=== PATIENT | female | born 1955 | race Caucasian/White ===

== ENCOUNTER → 2022-01-12 | Outpatient (CLI) | payer MEDICARE, OTHER ==
[2022-01-17 05:10] LABS: HSV-1 DNA Negative (Negative); HSV-2 DNA Negative (Negative)
== END | disposition home or self-care (01) ==
LOC: LAB SHORT 09:35
PROVIDERS: Physician Assistant Medical
DX: D48.5 Neoplasm of uncertain behavior of skin (principal); L81.3 Cafe au lait spots; L82.1 Other seborrheic keratosis; L85.3 Xerosis cutis; L57.8 Other skin changes due to chronic exposure to nonionizing radiation; R21 Rash and other nonspecific skin eruption
CPT/HCPCS: 87529; 87798

== ENCOUNTER → 2022-07-31 | Outpatient (CLI) | payer MEDICARE, OTHER ==
[2022-08-05 04:07] LABS: HSV-1 DNA Negative (Negative); HSV-2 DNA Negative (Negative)
== END | disposition home or self-care (01) ==
LOC: LAB SHORT 09:00
PROVIDERS: Physician Assistant Medical
DX: R21 Rash and other nonspecific skin eruption (principal); L57.8 Other skin changes due to chronic exposure to nonionizing radiation; L85.3 Xerosis cutis
CPT/HCPCS: 87529; 87798

== ENCOUNTER → 2023-08-20 | Outpatient (CLI) | payer MEDICARE ==
[2023-08-20 18:05] LABS: BASOPHILS ABSOLUTE AUTO 0.03 K/mm3 (0.00-0.23); BASOPHILS PERCENT AUTO 1 % (0-2); EOSINOPHILS ABSOLUTE AUTO 0.11 K/mm3 (0.00-0.68); EOSINOPHILS PERCENT AUTO 2 % (0-6); Hematocrit 40.9 % (33.0-51.0); Hemoglobin 13.1 g/dL (11.5-16.0); IMMATURE GRAN ABSOLUTE AUTO 0.01 K/mm3 (0.00-0.10); IMMATURE GRAN PERCENT AUTO 0 % (0-1); LYMPHOCYTES PERCENT AUTO 32 % (21-46); MONOCYTES ABSOLUTE AUTO 0.47 K/mm3 (0.16-1.47); MONOCYTES PERCENT AUTO 8 % (4-13); Mean Corpuscular HGB 27.3 pg (26.0-34.0); Mean Corpuscular Volume 85 fL (80-100); Mean Platelet Volume 10.7 fL (9.1-12.4); NEUTROPHILS ABSOLUTE AUTO 3.28 K/mm3 (1.96-9.15); NEUTROPHILS PERCENT AUTO 58 % (41-73); Platelet Count 293 K/mm3 (150-400); RDW Coefficient Variation 14.6 % (11.7-14.2); RDW Standard Deviation 45.6 fL (35.1-46.3)
[2023-08-20 19:30] LABS: Albumin, Blood 3.8 g/dL (3.4-5.0); Bilirubin, Total 0.4 mg/dL (0.1-1.0); Bun/Creatinine Ratio 23.3 (12.0-20.0); Calcium, Blood 9.4 mg/dL (8.5-10.1); Creatinine, Blood 0.73 mg/dL (0.40-1.00); Free Thyroxine 1.05 ng/dL (0.70-1.60); Globulin, Blood 3.7 g/dL (2.2-4.0); Potassium, Blood 3.9 mmol/L (3.5-5.5); Thyroid Stimulating Hormone 0.441 uIU/mL (0.360-4.800); Total Protein, Blood 7.5 g/dL (6.4-8.2)
== END | disposition home or self-care (01) ==
LOC: LAB SHORT 16:22 → LAB 16:22
PROVIDERS: Nurse Practitioner Family
DX: E02 Subclinical iodine-deficiency hypothyroidism (principal)
CPT/HCPCS: 80053; 84439; 84443; 85025

== ENCOUNTER → 2025-02-19 | Outpatient (CLI) | payer MEDICARE, OTHER ==
[2025-02-19 17:38] LABS: BASOPHILS ABSOLUTE AUTO 0.04 K/mm3 (0.00-0.23); BASOPHILS PERCENT AUTO 1 % (0-2); EOSINOPHILS ABSOLUTE AUTO 0.15 K/mm3 (0.00-0.68); EOSINOPHILS PERCENT AUTO 3 % (0-6); Hematocrit 39.4 % (33.0-51.0); Hemoglobin 12.7 g/dL (11.5-16.0); IMMATURE GRAN ABSOLUTE AUTO 0.01 K/mm3 (0.00-0.10); IMMATURE GRAN PERCENT AUTO 0 % (0-1); LYMPHOCYTES ABSOLUTE AUTO 2.43 K/mm3 (0.84-5.20); LYMPHOCYTES PERCENT AUTO 44 % (21-46); MONOCYTES ABSOLUTE AUTO 0.44 K/mm3 (0.16-1.47); MONOCYTES PERCENT AUTO 8 % (4-13); Mean Corpuscular HGB 27.8 pg (26.0-34.0); Mean Corpuscular HGB Conc 32.2 g/dL (31.5-36.5); Mean Corpuscular Volume 86 fL (80-100); Mean Platelet Volume 10.4 fL (9.1-12.4); NEUTROPHILS ABSOLUTE AUTO 2.52 K/mm3 (1.96-9.15); NEUTROPHILS PERCENT AUTO 45 % (41-73); Platelet Count 296 K/mm3 (150-400); RDW Coefficient Variation 14.2 % (11.7-14.2); RDW Standard Deviation 44.8 fL (35.1-46.3); Red Blood Cell Count 4.57 M/mm3 (3.80-5.20); White Blood Cell Count 5.59 K/mm3 (4.00-11.30)
[2025-02-19 21:09] LABS: Albumin, Blood 3.8 g/dL (3.4-5.0); Albumin/Globulin Ratio 1.1 (0.8-1.8); Bilirubin, Total 0.3 mg/dL (0.1-1.0); Bun/Creatinine Ratio 36.7 (12.0-20.0); Calcium, Blood 8.8 mg/dL (8.5-10.1); Creatinine, Blood 0.63 mg/dL (0.40-1.00); Free Thyroxine 1.16 ng/dL (0.70-1.60); Globulin, Blood 3.5 g/dL (2.2-4.0); Potassium, Blood 3.8 mmol/L (3.5-5.5); Thyroid Stimulating Hormone 1.76 uIU/mL (0.360-4.800); Total Protein, Blood 7.3 g/dL (6.4-8.2)
== END ==
LOC: LAB SHORT 15:52 → LAB 15:52
PROVIDERS: Nurse Practitioner Family
DX: E02 Subclinical iodine-deficiency hypothyroidism (principal); M25.571 Pain in right ankle and joints of right foot; G89.29 Other chronic pain; R60.0 Localized edema
CPT/HCPCS: 80053; 84439; 84443; 85025; 85651

== ENCOUNTER 2025-07-12 08:12 | Inpatient (IN) | payer MEDICARE, OTHER ==
[~2025-07-12] VITALS: Ht 160 cm; Wt 63.2 kg
[2025-07-12] VITALS (24 sets, daily range): BP systolic 90–147; BP diastolic 58–85
[2025-07-12] MEDS ORDERED: ADTHYZA PO (08:26)
[2025-07-12 08:38] LABS: BASOPHILS ABSOLUTE AUTO 0.04 K/mm3 (0.00-0.23); BASOPHILS PERCENT AUTO 0 % (0-2); EOSINOPHILS ABSOLUTE AUTO 0.07 K/mm3 (0.00-0.68); EOSINOPHILS PERCENT AUTO 1 % (0-6); Hematocrit 38.7 % (33.0-51.0); Hemoglobin 12.6 g/dL (11.5-16.0); IMMATURE GRAN ABSOLUTE AUTO 0.04 K/mm3 (0.00-0.10); IMMATURE GRAN PERCENT AUTO 0 % (0-1); LYMPHOCYTES ABSOLUTE AUTO 1.57 K/mm3 (0.84-5.20); LYMPHOCYTES PERCENT AUTO 15 % (21-46); MONOCYTES ABSOLUTE AUTO 0.48 K/mm3 (0.16-1.47); MONOCYTES PERCENT AUTO 5 % (4-13); Mean Corpuscular HGB Conc 32.6 g/dL (31.5-36.5); Mean Corpuscular Volume 85 fL (80-100); NEUTROPHILS ABSOLUTE AUTO 8.09 K/mm3 (1.96-9.15); NEUTROPHILS PERCENT AUTO 79 % (41-73); NRBC ABSOLUTE 0.00 K/mm3 (0.00-0.02); NRBC Auto 0.0 /100 WBC (0.0-0.2); Platelet Count 278 K/mm3 (150-400); RDW Coefficient Variation 14.7 % (11.7-14.2); RDW Standard Deviation 45.3 fL (35.1-46.3)
[2025-07-12] MEDS ORDERED: HYDROmorphone HCl/Pf 1MG SYR IV ONE ×2 (08:55→10:40)
[2025-07-12] MEDS ORDERED: Ondansetron HCl 2 MG / ML 2ML Vial IV ONE (08:55)
[2025-07-12 08:56] LABS: Alanine Aminotransfer (ALT/SGP 27.0 U/L (12-78); Albumin, Blood 3.4 g/dL (3.4-5.0); Albumin/Globulin Ratio 0.9 (0.8-1.8); Anion Gap 10.0 mmol/L (3-11); Aspartate Aminotrans (AST/SGOT 27.0 U/L (12-37); Bilirubin, Total 0.5 mg/dL (0.1-1.0); Blood Urea Nitrogen 17.0 mg/dL (8-24); CO2, Blood 23.0 mmol/L (21-32); Calcium, Blood 8.8 mg/dL (8.5-10.1); Chloride, Blood 110.0 mmol/L (98-108); Creatinine, Blood 0.56 mg/dL (0.40-1.00); Globulin, Blood 3.7 g/dL (2.2-4.0); Glucose, Blood 163.0 mg/dL (70-99); Potassium, Blood 3.7 mmol/L (3.5-5.5); Sodium, Blood 139.0 mmol/L (136-145); Total Protein, Blood 7.1 g/dL (6.4-8.2)
[2025-07-12 10:01] LABS: Source, Urine Clean Catch
[2025-07-12 10:05] LABS: Bilirubin, Urine Neg (Neg); Color, Urine Yellow (P-Yellow); Glucose Qualitative, Urine Neg (Neg); Ketones, Urine 2+ (Neg); Leukocyte Esterase, Urine Neg (Neg); Protein, Urine 1+ (Neg); Specific Gravity, Urine 1.010 (1.003-1.022); Urobilinogen, Urine NORM (Normal)
[2025-07-12] MEDS ORDERED: Piperacillin/Tazobactam Sod 3.375 GM in NS 100 ML IV ONE (10:10)
[2025-07-12 10:20] LABS: White Blood Cells, Urine 0-2 /hpf (0-5)
[2025-07-12] MEDS ORDERED: NS 1,000 ML IV SCH (10:20)
[2025-07-12] MEDS ORDERED: HYDROmorphone HCl/Pf 1MG SYR IV PRN ×2 (11:45→12:35)
[2025-07-12] MEDS ORDERED: Prochlorperazine Edisylate 10 mg Vial IV PRN (11:45)
[2025-07-12 12:23] LABS: Prothrombin Time Results 10.6 Sec (9.7-11.5)
[2025-07-12] MEDS ORDERED: Ropivacaine 0.5% HCL/PF 5 MG/ML 30ML Vial ONE (12:23)
[2025-07-12] MEDS ORDERED: SuccINYLCHOLINE Chloride 100 MG/5 ML 5MLSYR ONE (12:24)
[2025-07-12] MEDS ORDERED: Ondansetron HCl 2 MG / ML 2ML Vial ONE ×2 (12:24→13:46)
[2025-07-12] MEDS ORDERED: Dexamethasone Sod Phos 10 MG/ML 1ML VIAL ONE ×2 (12:24→13:46)
[2025-07-12] MEDS ORDERED: Rocuronium Bromide 10 MG/ML 5ML Injection IV ONE ×2 (12:24→13:57)
[2025-07-12] MEDS ORDERED: Midazolam HCl 1MG / ML 2ML Vial ONE (12:25)
[2025-07-12] MEDS ORDERED: FentaNYL Citrate 50 MCG/ML 2 ML Injection ONE ×3 (12:25→15:23)
[2025-07-12] MEDS ORDERED: FentaNYL Citrate 50 MCG/ML 2 ML Injection IV PRN ×2 (12:30→12:35)
[2025-07-12] MEDS ORDERED: Ondansetron HCl 2 MG / ML 2ML Vial IV PRN (12:35)
[2025-07-12] MEDS ORDERED: Albuterol 2.5 MG/3 ML VIAL INH PRN (12:35)
[2025-07-12] MEDS ORDERED: Sugammadex Sodium 200 MG/2ML SDV (100 MG/ML) ONE (13:54)
[2025-07-12] MEDS ORDERED: Phenylephrine HCl 100 MCG/ML-NS 10MLSYR (1MG/10ML) ONE (14:07)
--- NOTE | 2025-07-12 14:41 | NUR ---
07/12/25 1441 Divina Ballard PATIENT RECIEVED ANTIBIOTICS IN ER.
[2025-07-12] MEDS ORDERED: HYDROmorphone HCl/Pf 1MG SYR ONE ×2 (15:28→15:57)
[2025-07-12] MEDS ORDERED: Ketorolac Tromethamine 30mg Vial ONE (15:57)
[2025-07-12] MEDS ORDERED: Labetalol HCL 5 MG/ML 4ML Injection (Single Dose) ONE (16:14)
[2025-07-12] MEDS ORDERED: Naloxone HCl 0.4MG / ML 1ML Vial IV ONE (16:55)
--- NOTE | 2025-07-12 16:58 | NUR ---
pt to room 208. respirations 8/min. pt pale. Diaphoretic. bp stable. Dr cisneros consulted. Alfonso ordered and dr cisneros would like to transfer pt to PCU for vbg. julietaan in progress
--- NOTE | 2025-07-12 17:14 | NUR ---
pt transferred to PCU accompainied by PCU discharge specialist.
[2025-07-12 17:23] LABS: pH Blood Venous 7.18 (7.34-7.37)
[2025-07-12] MEDS ORDERED: NS 250 ML IV PRN (17:35)
[2025-07-12] MEDS ORDERED: Piperacillin/Tazobactam Sod 3.375 GM in NS 100 ML IV SCH (17:40)
[2025-07-13] VITALS (8 sets, daily range): BP systolic 91–117; BP diastolic 55–74
[2025-07-13 03:47] LABS: Hematocrit 35.6 % (33.0-51.0); Hemoglobin 11.2 g/dL (11.5-16.0); Mean Corpuscular HGB Conc 31.5 g/dL (31.5-36.5); Mean Corpuscular Volume 88 fL (80-100); NRBC ABSOLUTE 0.00 K/mm3 (0.00-0.02); NRBC Auto 0.0 /100 WBC (0.0-0.2); Platelet Count 253 K/mm3 (150-400); RDW Coefficient Variation 15.3 % (11.7-14.2); RDW Standard Deviation 48.7 fL (35.1-46.3)
[2025-07-13 04:10] LABS: Alanine Aminotransfer (ALT/SGP 20.0 U/L (12-78); Albumin, Blood 2.4 g/dL (3.4-5.0); Albumin/Globulin Ratio 0.8 (0.8-1.8); Anion Gap 8.0 mmol/L (3-11); Aspartate Aminotrans (AST/SGOT 24.0 U/L (12-37); Bilirubin, Total 0.6 mg/dL (0.1-1.0); Blood Urea Nitrogen 17.0 mg/dL (8-24); CO2, Blood 23.0 mmol/L (21-32); Calcium, Blood 7.9 mg/dL (8.5-10.1); Chloride, Blood 114.0 mmol/L (98-108); Creatinine, Blood 0.57 mg/dL (0.40-1.00); Globulin, Blood 3.0 g/dL (2.2-4.0); Glucose, Blood 123.0 mg/dL (70-99); Potassium, Blood 4.5 mmol/L (3.5-5.5); Sodium, Blood 140.0 mmol/L (136-145); Total Protein, Blood 5.4 g/dL (6.4-8.2)
[2025-07-13 04:11] LABS: BAND PERCENT MAN 34 % (0-8); BASOPHILS ABSOLUTE MAN 0.00 K/mm3 (0.00-0.23); BASOPHILS PERCENT MAN 0 % (0-2); EOSINOPHILS ABSOLUTE MAN 0.00 K/mm3 (0.00-0.68); EOSINOPHILS PERCENT MAN 0 % (0-6); LYMPHOCYTES ABSOLUTE MAN 0.30 K/mm3 (0.84-5.20); LYMPHOCYTES PERCENT MAN 6 % (21-46); METAMYELOCYTE ABSOLUTE MAN 0.10 K/mm3 (0.00-0.00); METAMYELOCYTE PERCENT MAN 2 % (0-0); MONOCYTES ABSOLUTE MAN 0.15 K/mm3 (0.16-1.47); MONOCYTES PERCENT MAN 3 % (4-13); NEUTROPHILS ABSOLUTE MAN 4.58 K/mm3 (1.96-9.15); SEG NEUTROPHILS PERCENT MAN 55 % (41-73)
--- NOTE | 2025-07-13 05:28 | NUR ---
NOC SHIFT SUMMARY PT ARRIVED TO PCU AT SHIFT CHANGE ON 07/12, BEDSIDE SHIFT REPORT GIVEN BY PEARL FISHERMAN GORGE. PT ARRIVED ON BIPAP BUT WAS UNABLE TO CELESTE IT AROUND 1999 D/T NAUSEA. PATIENT HAS HAD INTERMIT NAUSEA T/O THE NIGHT AND HAS BEEN MEDICATED WITH PRNs. NO EPISODES OF VOMITTING. IV ABX GIVEN PER EMAR AND IV FLUIDS INFUSING. BP HAS BEEN SOFT WITH MAP >65. DENIES CHEST PAIN OR PRESSURE. ABDOMEN PAIN 4-5/10 MEDICATED X1 PER EMAR. DEVI IN PLACE DRAINING TO GRAVITY, CATH CARE PROVIDED. DRESSING MIDLINE WITH SCANT AMOUNT OF DRAINAGE. PATIENT FAMILY PLANS TO RETURN THIS AM AND WOULD LIKE PHONE CALL WITH ANY UPDATES. BED IN LOW, CALL LIGHT IN REACH. CARE CONTINUES. CALL LIGHT IN REACH.
--- NOTE | 2025-07-13 10:50 | NUR ---
UPDATE PATIENT TOLERATING DILAUDID WELL AT LONGER INTERVALS. CONCERNED FOR HISTORY OF OVERSEDATION. THIS RN CONTACTED DR BRAY TO RECOMMEND POSSIBLE ADJUSTMENT TO PAIN MEDICATION ORDER. THIS RN RECOMMENDED FENTANYLMD PREFERRED DILAUDID AT LOWER DOSAGE. NEW ORDERS RECEIVED. SEE EMAR FOR DETAILS.
[2025-07-13] MEDS ORDERED: HYDROmorphone HCl/Pf 1MG SYR IV PRN (10:55)
[2025-07-13 11:00] LABS: pH Blood Venous 7.34 (7.34-7.37)
[2025-07-13] MEDS ORDERED: TPN Consult Notification XX ONE (13:05)
[2025-07-13] MEDS ORDERED: Parenteral Electolytes 40 ML,Potassium Phosphate Dibasic 30 MM,Multivitamins 10 ML,ZINC... IV SCH (17:00)
--- NOTE | 2025-07-13 18:42 | NUR ---
DAY SHIFT SUMMARY RAFFI IS ORIENTED X4, SOFT SPOKEN BUT ABLE TO MAKE NEEDS KNOWN. PLEASANT AND COOPERATIVE. PAIN 7-10/10 TO MID ABD - IV MEDS GIVEN ORDERED. TOLERATING WELL - HX OF OVERSEDATION AND LASTED 4+ HOURS WITH 1MG IV DILAUDID. NOTIFIED DR. BRAY AND ORDER CHANGED TO 0.5-1MG. SEE EMAR FOR DETAILS. MIDLINE ABD MARV WITH SMALL NICKEL SIZED CIRCLED SS DRAINAGE. L MID QUADRANT COLOSTOMY WITH BOWEL SWEAT, NO OUTPUT TODAY. HYPOACTIVE BOWEL SOUNDS. PPN STARTED PER EMAR, TOLERATED WELL. OCASSIONAL NAUSEA AND PAIN TREATED BY AVAILABLE PRNS WITH RELIEF. ABLE TO TOLERATE UP TO BSC FOR VOIDING, DEVI REMOVED AND ABLE TO VOID SMALL AMOUNT. CONTINUE BLADDER REMOVAL PROTOCOL. NO EDEMA, SCDS IN PLACE. IVF DCD PER DR. BRAY. PT EDUCATED ON PAIN, COLOSTOMY TEACHING STARTED - PT ABLE TO VISUALIZE COLOSTOMY BUT NOT INTERACTED AT THIS TIME. FAMILY AT BEDSIDE MOST OF THE DAY. BED LOCKED AND IN LOWEST POSITION
[2025-07-14] VITALS (17 sets, daily range): BP systolic 92–146; BP diastolic 48–80
--- NOTE | 2025-07-14 00:31 | NUR ---
PROVIDER COMMUNICATION: PROVIDER CONSULTED D/T PT HAVING 2 RUNS OF SVT 150S FOR ABOUT 6 SECONDS WHILE SLEEPING. BP 117/67, RR: 18, SPO2: 94%. PROVIDER ORDERED IONOIZED CALCIUM, MAG, AND PHOS LAB DRAW. PROVIDER INSTRUCTED TO CONSULT AGAIN IF SVT LAST MORE THAN 15 SECONDS AND IF LABS ARE ABNORMAL. WILL CONTINUE PLAN OF CARE.
[2025-07-14 01:20] LABS: Magnesium, Blood 2.2 mg/dL (1.6-2.4); Phosphorus, Blood 1.9 mg/dL (2.5-4.9)
[2025-07-14] MEDS ORDERED: Sodium Phosphate Mono/Dibasic 250 MG Tab PO ONE (01:35)
[2025-07-14] MEDS ORDERED: Potassium Phosphate Dibasic 10 MM in Dextrose 5% 250 ML IV ONE (01:55)
[2025-07-14] MEDS ORDERED: CALCIUM GLUC IN NACL, ISO-OSM 50 ML IV ONE (02:05)
[2025-07-14] MEDS ORDERED: Sodium Phosphate 10 MM in Dextrose 5% 250 ML IV ONE (02:20)
--- NOTE | 2025-07-14 03:43 | NUR ---
PROVIDER COMMUNICATION: PT CONTINUED TO HAVE TWO MORE RUNS OF SVT. ONE LASTING 18 SECONDS WITH A HR REACHING 150S-160S AND ONE LASTING 21 SECONDS WITH A HR REACHING 150S-180S. PHOS 1.9 AND IONIZED CALCIUM 1.07. PROVIDER CONSULTED AND ORDERED CALCIUM GLUCONATE AND SODIUM PHOSPHATE IV. MEDICATED PER ORDER.
[2025-07-14 06:03] LABS: Anion Gap 7 mmol/L (3-11); Blood Urea Nitrogen 20 mg/dL (8-24); CO2, Blood 24 mmol/L (21-32); Calcium, Blood 8.4 mg/dL (8.5-10.1); Chloride, Blood 110 mmol/L (98-108); Creatinine, Blood 0.46 mg/dL (0.40-1.00); Glucose, Blood 109 mg/dL (70-99); Magnesium, Blood 2.1 mg/dL (1.6-2.4); Phosphorus, Blood 1.8 mg/dL (2.5-4.9); Potassium, Blood 3.8 mmol/L (3.5-5.5); Sodium, Blood 137 mmol/L (136-145); Triglycerides 59 mg/dL (30-160)
[2025-07-14] MEDS ORDERED: Metoprolol Tartrate 1 MG/ML 5 ML VIAL IV ONE (06:05)
--- NOTE | 2025-07-14 06:53 | NUR ---
SHIFT SUMMARY: PT A&OX4 CALM AND COOPERATIVE. BP STABLE. MULTIPLE RUNS OF SVT REACHING 180S. PROVIDER CONSULTED. SEE PREVIOUS NOTES. CALCIUM AND PHOS REPLACED. PROVIDER ORDERED IV METOPROLOL. MEDICATED WITH 2.5MG D/T BP. SR-ST 90S-120S. MAINTAINING >92% ON 2L NC. PT C/O ABD, LEFT RIB, AND LEFT BACK PAIN. MEDICATED PER EMAR. OCCASIONAL NAUSEA. MEDICATED PER EMAR. RECEIVING PPN @135 ML/HR. SBA TO BSC. ADEQUATE URINE OUTPUT. SMALL BLOODY OUTPUT FROM COLOSTOMY. MIDLINE ABD DRESSING. BED IS LOW AND LOCKED AND CALL LIGHT WITHIN REACH.
[2025-07-14] MEDS ORDERED: TPN Consult Notification XX ONE (13:30)
[2025-07-14] MEDS ORDERED: NS 500 ML IV ONE (15:10)
[2025-07-14] MEDS ORDERED: Potassium Chl 20MEQ/Water100ML 100 ML IV STA (16:13)
[2025-07-14] MEDS ORDERED: NS 500 ML IV SCH (17:00)
[2025-07-14] MEDS ORDERED: Digoxin 0.25 MG in NS 4 ML IV SCH (17:00)
[2025-07-14] MEDS ORDERED: Parenteral Electolytes 40 ML,Potassium Phosphate Dibasic 30 MM,Multivitamins 10 ML,ZINC... IV SCH (17:00)
--- NOTE | 2025-07-14 18:33 | NUR ---
SHIFT ASSESSMENT PATIENT HAD EXPERIENCED MULTIPLE SHORT UNSTAINED RUNS OF SINUS TACH. NOTIFIED PROVIDER. PATIENT'S RHYTHM CHANGED TO AFIB. PROVIDER NOTIFIED. MEDICATED PER EMAR. PATIENT'S BLOOD PRESSURE REMAINED LOW WHILE HEART RATE WAS ELEVATED 140-170. PROVIDER NOTIFIED, NEW MEDICATION ORDER PLACED BY PROVIDER. PATIENT MEDICATED PER EMAR. PATIENT C/O OF "BLOATING", ORDER OBTAINED AND MEDICATED PER EMAR. DIGOXIN LOADED PER EMAR ORDERS, CURRENT HEART RATE 140-150. PATIENT ALERT AND ORIENTED X 4 AND CAN REPOSITION HER-SELF. PATIENT RESTING, BED IN LOWEST POSITION, CALL LIGHT WITH IN REACH. MID-ABDOMINAL DRESSING CLEAN DRY AND INTACT. MARV DRAIN RUNNING.
[2025-07-15] VITALS (11 sets, daily range): BP systolic 71–130; BP diastolic 44–91
[2025-07-15 04:32] LABS: Anion Gap 8 mmol/L (3-11); Blood Urea Nitrogen 12 mg/dL (8-24); CO2, Blood 23 mmol/L (21-32); Calcium, Blood 8.8 mg/dL (8.5-10.1); Chloride, Blood 108 mmol/L (98-108); Creatinine, Blood 0.43 mg/dL (0.40-1.00); Glucose, Blood 89 mg/dL (70-99); Magnesium, Blood 1.9 mg/dL (1.6-2.4); Phosphorus, Blood 1.3 mg/dL (2.5-4.9); Potassium, Blood 3.9 mmol/L (3.5-5.5); Sodium, Blood 135 mmol/L (136-145)
--- NOTE | 2025-07-15 06:49 | NUR ---
SHIFT SUMMARY: PT A&OX4 CALM AND COOPERATIVE. CONVERTED FROM AFIB TO NSR 70S-90S AT 2230. HAS MAINTAINED NSR 70S-90S. SOFT BPS. MAINTAINED >92% ON RA. DENIES PAIN. OSTOMY APPLIANCE CHANGED. CLEAR LIQUID DIET. WICKING SYSTEM IN PLACE. NO OTHER SIGNIFICANT EVENTS TO REPORT. BED IS LOW AND LOCKED. CALL LIGHT WITHIN REACH. CONTINUE WITH CURRENT PLAN OF CARE.
[2025-07-15] MEDS ORDERED: Potassium Phosphate Dibasic 20 MM in Dextrose 5% 500 ML IV STA (08:44)
--- NOTE | 2025-07-15 10:41 | NUR ---
assumption of care assumed care of patient at 0700. patient was awake, alert and oriented x 4 at bedside report. Patient's HR was 80-90 and regular sinus rhythm, blood pressure is 90/57. Patient denies chest pain and shortness of breath. Her ostomy is red, beefy and no abnormal bleeding present. patient now takes oral digoxin and was medicated per emar. She reports some nausea/indigestion, medicated per emar. Patient is resting comfortably, bed in lowest position, and call light is withing reach.
[2025-07-15] MEDS ORDERED: TPN Consult Notification XX ONE (11:45)
[2025-07-15] MEDS ORDERED: Parenteral Electolytes 40 ML,Potassium Phosphate Dibasic 30 MM,Multivitamins 10 ML,ZINC... IV SCH (17:00)
--- NOTE | 2025-07-15 18:25 | NUR ---
SHIFT SUMMARY PATIENT CONTINUES TO IMPROVE. HER HR HAS BEEN 80-90 AND SR ALL SHIFT WITH THE ORAL DIGOXIN NOTED IN ASSUMPTION OF CARE NOTE . HER MAP HAS BEEN GREATER THAN 72 ALL SHIFT. PATIENT'S DIET IS CLEAR LIQUIDS AND AND IS STILL INFUSING PPN AT 110ML/HR. PATIENT HAS HAD PT AND OT TODAY WHICH FATIGUED HER AT THE END OF DAY. PHYSICAL THERAPY HAS RECOMMENDED THAT SHE NOT GET OUT OF BED WITH OUT ASSISTANCE. PATIENT HAS HAD COMPLAINTS OF INDIGESTION AND WAS TREATED PER EMAR. PATIENT'S FAMILY WILL TRY TO FIND FOODS HIGH IN PROTEIN THAT FIT HER PRESCRIBED DIET AND HER FOOD ALLERGIES. PATIENT RESTING COMFORTABLY, BED IN LOWEST POSITION, CALL LIGHT WITH IN REACH.
[2025-07-16] VITALS (8 sets, daily range): BP systolic 118–131; BP diastolic 62–72
[2025-07-16 05:21] LABS: Anion Gap 11 mmol/L (3-11); Blood Urea Nitrogen 13 mg/dL (8-24); CO2, Blood 21 mmol/L (21-32); Calcium, Blood 8.2 mg/dL (8.5-10.1); Chloride, Blood 110 mmol/L (98-108); Creatinine, Blood 0.38 mg/dL (0.40-1.00); Glucose, Blood 94 mg/dL (70-99); Magnesium, Blood 2.0 mg/dL (1.6-2.4); Phosphorus, Blood 2.3 mg/dL (2.5-4.9); Potassium, Blood 3.6 mmol/L (3.5-5.5); Sodium, Blood 138 mmol/L (136-145)
--- NOTE | 2025-07-16 06:17 | NUR ---
SHIFT SUMMARY: PT A&OX4 CALM AND COOPERATIVE. VSS ON RA. DENIES PAIN. COLOSTOMY IN LUQ. STOMA IS PINK AND MOIST. NO OUTPUT. FREQUENT AND ADEQUATE URINE OUTPUT. PHOS INCREASED FROM 1.3 TO 2.1. PROVIDER NOTIFIED. PPN @110 ML/HR. SBA W/ FWW. WICKING SYSTEM IN PLACE. BED IS LOW AND LOCKED. CALL LIGHT WITHIN REACH. CONTINUE WITH CURRENT PLAN OF CARE.
[2025-07-16] MEDS ORDERED: Potassium Phosphate Dibasic 10 MM in Dextrose 5% 250 ML IV STA (06:35)
--- NOTE | 2025-07-16 12:50 | NUR ---
THIS NURSE CALLED DR. ELIAS ABOUT THE PT. ON THE PHONE THIS RN ASKED IF THE TEAM CAN START TO ADVANCE HER DIET TO TRY AND GET OFF OF THE PPN WITH DIETIONS CONSULTATIONED. DR. ELIAS AGREED TO ADVANCE TOLERATED. ALSO, WHILE ON THE PHONE, THIS RN LET THE PROVIDER KNOW ABOUT THE AIRLEAK ALARM ON THE MARV DRESSING. DR. ELIAS SAID TO MONITOR AT THIS TIME. THE MARV DRESSING STILL HAS A GOOD SEAL, AND THERE IS NO INCREASE IN OUTPUT NOTED ON THE DRESSING. ALSO, THE PT STARTED HAVING SMALL LOOSE BROWN OUTPUT FROM HER STOMA. STILL HAVE HYPOACTIVE BOWEL SOUNDS. NOTED FLATTUS IN OSTOMY BAG. THE PT IS STILL HAVING SOME GAS COMPLAINTS AND HAS BEEN MEDICATED PER EMAR. ALSO, SURGIAL CHARGE NURSE DID ASSESS THE PT'S OSTOMY AND MARV DRESSING AND DID NOT HAVE ANY CONCERNS. SEE NOTES FOR UPDATES.
--- NOTE | 2025-07-16 13:58 | NUR ---
THIS RN DISCUSSED ADVANCING PT'S DIET WITH JR BAILEY. LYNN RECCOMENDING INCREASEING FROM A CLEAR LIQUID DIET TOA FULL LIQUID DIET, AND CONTINUING PPN TODAY SINCE THE PT HAS POOR DIET INTAKE. THE PT CONTINUES TO C/O THE FOOD FORM [facility] WITH ALL OF OTHE SUGARS AND DYES. 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 THE PT'S GRANDDAUGHTER POLY WENT TO [facility] TO GET THE PT MORE FOOD SHE CAN TOLERATE. SEE NOTES FOR UPDATES .
--- NOTE | 2025-07-16 14:22 | NUR ---
MORNING SUMMARY PT IS A&O X4, ENGAGED WITH CARE, AND ABLE TO EXPRESS NEEDS. TELEMETRY MONITORING SHOWS JUNCTIONAL RHYTHM 70s-80s. WAVEFORM LOOKS NORMAL, BUT CA INTERVAL NARROWED TO 0.10, BPs ARE STABLE. PT SATTING OVER 93% ON RM AIR. PT POST OP DAY 4 POST LAPAROTOMY AND HEMICHOLECTOMY. STOMA IS PALE PINK AND MOIST, PRODUCING GAS AND SMALL AMOUNT OF BROWN LOOSE STOOL. MARV DRESSING IN PLACE WITH NO INCREASED EXUDATE AMOUNT. MARV MONITOR STATES AIR LEAK, DR. ELIAS AWARE- SEE NURSE NOTE. PT C/O PRESSURE IN ABD THIS AM FROM GAS BUILDUP, MEDICATED PER EMAR. PT HAS A PUREWICK IN PLACE FOR OVERACTIVE BLADDER, CHANGED THIS AFTERNOON. PT STATED THAT SHE RECIEVES [facility] OUTPATIENT FOR HER FREQUENCY AND URGENCY. PTs HAS BEEN AT BEDSIDE AND UPDATED ON CARE. PT ADVANCED FROM CLEAR LIQUID TO FULL LIQUID DIET BUT HAS YET TO ATTEMPT CONSUMING A FULL LIQUID MEAL YET D/T LACK OF OPTIONS IN HER DIETARY PREFERENCES. PPN INFUSING PER DIETITIAN. PT CURRENTLY IN BED WITH SIDE RAIL UP AND CALL LIGHT IN REACH. SEE NOTES FOR UPDATES.
--- NOTE | 2025-07-16 15:20 | NUR ---
ASSUMED CARE AT 1500, RECEIVED BEDSIDE REPORT FROM LASHA DUKE AND LASHA JOHANSEN.
--- NOTE | 2025-07-16 18:38 | NUR ---
THIS RN CALLED DR BRAY ABOUT ONGOING PAIN DESPITE BEING MEDICATED W/ TYLENOL. PO DILAUDID 0.5-1.O MG Q6 ORDERED. SEE NOTES FOR UPDATES
--- NOTE | 2025-07-16 23:19 | NUR ---
TRANSFER PT ARRIVED FROM PCU2 TO SURGICAL FLOOR 218 AT APPROX 2130 TODAY. BEDSIDE REPORT COMPLETED FROM Cailin RN PRIOR TO TRANSFER. PT A/OX4 WITH VSS. DENIES PAIN, SOB, CHEST PAIN OR N/T. OSTOMY APPLIANCE CDI, STOMA RED IN COLOR. MARV TO MIDLINE INTACT, OLD SHADOWING NOTED AND DRESSING COMPRESSED. CELESTE FULL LIQUID, DENIES N/V. HR SR AT 68BPM, PER KILN DOOR BUILDER. PUREWICK IN PLACE TO SUCTION. IV NUTRITION INFUSING PER ORDERS TO EX DWELL, DRESSING CDI. PT HAS CALL LIGHT IN REACH AND DENIES NEEDS.
--- NOTE | 2025-07-17 05:32 | NUR ---
SHIFT SUMMARY POD 5 S/P EXLAP WITH L HEMICOLECTOMY WITH DISTAL TRANSVERSE COLOSTOMY. OSTOMY PINK AND PATENT. MIDLINE SURGICAL SITE WITH MARV DRESSING C/D/I WITH OLD SHADOWING NOTED. PT C/O MILD PAIN, MEDICATED AND MANAGED PER EMAR. PT TOLERATING FULL LIQUID DIET AND INFUSING PPN 110ML/HR. FOOD AND BEVERAGE INTERN REPORTED 10 SECOND RUN OF BIGEMINY AT 2130. PT DENIED CHEST PAIN/PRESSURE, PALPITATAIONS, AND SOB. PT CURRENTLY SINUS RHYTHM HR 70 PER FOOD AND BEVERAGE INTERN. PUREWICK IN PLACE DUE UREGENCY AND FREQUENCEY WITH LIGHT YELLOW OUTPUT. PT UP IN RECLINER. CALL LIGHT WITHIN REACH. CARE PLAN ONGOING.
[2025-07-17 07:31] VITALS: BP 122/61
--- NOTE | 2025-07-17 15:16 | NUR ---
Spiritual Care Visit. Pt. is awake and welcomes my visit. Pt. is delightfully pleasant. Facilitated a life review and considered matters of zia and her family. Listen with interest and calming presence. Pt. displays a joyful countenance with evidence of her great spiritual hope. Prayed with the Pt. Pt. verbalized [facility].
[2025-07-17 15:44] VITALS: BP 118/60
--- NOTE | 2025-07-17 18:52 | NUR ---
SUMMARY: POD6 L COLECTOMY. A/O, VSS. SURGICAL SITE WNL, MARV NOT HOLDING SUCTION AND DR. ELIAS AWARE. OK TO LEAVE IN PLACE UNTIL NEED TO CHANGE OSTOMY APPLIANCE PER DR. ELIAS. PT UP SEVERAL TIMES TO RECLINER, GETS TIRED EASILY. PAIN APPEARS WELL MANAGED. TELE DC'D. TOLERATING SMALL AMTS OF REG DIET, NO N/V. NO ACUTE CONCERNS.
[2025-07-17 19:17] VITALS: BP 125/64
[2025-07-18 03:14] VITALS: BP 111/60
--- NOTE | 2025-07-18 06:02 | NUR ---
SHIFT SUMMARY NO ACUTE CHANGES TO REPORT OVERNIGHT. PT HAS RESTED MOST OF THE NIGHT. SOME ABD PAIN THIS SHIFT, WELL GAS PAIN. MEDICATED PER EMAR. PT AMBULATED TO THE BSC THIS SHIFT. USING INCENTIVE SPIROMETER. IV ANTIBIOTICS INFUSED. VITALS STABLE. PLAN OF CARE REMAINS UNCHANGED. BED IN LOWEST POSITION, CALL LIGHT WITHIN REACH.
[2025-07-18 07:15] VITALS: BP 129/70
[2025-07-18 14:49] VITALS: BP 120/59
--- NOTE | 2025-07-18 17:11 | NUR ---
SUMMARY NO ACUTE CHANGES T/O SHIFT. PT SAT UP IN RECLINER THIS AM. WAS TIRED T/O AFTERNOON, SLEEPING OFF AND ON. MEDICATED PT PER ORDERS FOR PAIN DURING SHIFT. PT'S OSTOMY PRODUCING FLATUS AND SOFT UNFORMED STOOL. DISCUSSED WITH PT HOW TO BURP APPLIANCE AND EMPTY. PT ATTENTIVE TO INSTRUCTION. CALL LIGHT IN REACH.
[2025-07-18 19:42] VITALS: BP 122/61
[2025-07-19 03:53] VITALS: BP 113/54
[2025-07-19 05:50] LABS: Hematocrit 26.2 % (33.0-51.0); Hemoglobin 8.8 g/dL (11.5-16.0); Mean Corpuscular HGB Conc 33.6 g/dL (31.5-36.5); Mean Corpuscular Volume 82 fL (80-100); NRBC ABSOLUTE 0.02 K/mm3 (0.00-0.02); NRBC Auto 0.1 /100 WBC (0.0-0.2); Platelet Count 395 K/mm3 (150-400); RDW Coefficient Variation 14.3 % (11.7-14.2); RDW Standard Deviation 42.3 fL (35.1-46.3)
--- NOTE | 2025-07-19 06:02 | NUR ---
SHIFT SUMMARY NO ACUTE CHANGES TO REPORT OVERNIGHT, PAIN MANAGED PER EMAR. PT HAS BEEN UP AND AMBULATING, AND TOLERATING. VOIDING. OSTOMY PUTTING OUT BROWN LIQUID STOOL. VITALS STABLE. PLAN OF CARE REMAINS UNCHANGED. BED IN LOWEST POSITION, CALL LIGHT WITHIN REACH.
[2025-07-19 06:27] LABS: Anion Gap 9.0 mmol/L (3-11); Blood Urea Nitrogen 11.0 mg/dL (8-24); CO2, Blood 23.0 mmol/L (21-32); Calcium, Blood 8.5 mg/dL (8.5-10.1); Chloride, Blood 108.0 mmol/L (98-108); Creatinine, Blood 0.42 mg/dL (0.40-1.00); Glucose, Blood 93.0 mg/dL (70-99); Potassium, Blood 3.9 mmol/L (3.5-5.5); Sodium, Blood 136.0 mmol/L (136-145)
[2025-07-19 07:02] VITALS: BP 103/58
[2025-07-19 09:32] LABS: Ferritin, Serum 181.0 ng/mL (8-252); Total Iron Binding Capacity 194.0 ug/dL (250-450)
--- NOTE | 2025-07-19 11:35 | NUR ---
THERAPY IN WITH PT.
--- NOTE | 2025-07-19 11:51 | NUR ---
PT TO IMAGING.
--- NOTE | 2025-07-19 12:09 | NUR ---
PT BACK TO FROM CT. SITTING UP IN RECLINER.
[2025-07-19] MEDS ORDERED: Potassium Phosphate Dibasic 20 MM in Dextrose 5% 500 ML IV STA (12:44)
[2025-07-19] MEDS ORDERED: Iron Dextran 50 MG / ML 2ML Vial IV ONE (12:45)
--- NOTE | 2025-07-19 13:12 | NUR ---
resting in bed, call light in reach.
[2025-07-19] MEDS ORDERED: Iron Dextran 975 MG in NS 250 ML IV ONE (14:00)
[2025-07-19 14:51] VITALS: BP 102/57
--- NOTE | 2025-07-19 18:45 | NUR ---
SUMMARY NO ACUTE CHANGES T/O SHIFT. PT WORKED WITH THERAPY, HAD CT, SAT UP IN CHAIR OFF AND ON T/O DAY. REC'D INFED THIS AFTERNOON, TOLERATED WELL. MEDICATED PT PER ORDERS DURING SHIFT FOR PAIN. USES PUREWICK FOR URINARY URGENCY. CALL LIGHT IN REACH. PT PLEASANT AND COOPERATIVE.
[2025-07-19 20:16] VITALS: BP 101/59
--- NOTE | 2025-07-20 04:30 | NUR ---
PT WITH SMALL AMNT LIQ STOOL IN OSTOMY BAG.DENIES NAUSEA,REPORTS GAS PAINS WHICH SHE TAKES MAALOX AND MYLICON FOR AND FEELS THEY ARE EFFECTIVE.
[2025-07-20 04:35] VITALS: BP 122/53
[2025-07-20 07:15] LABS: Hematocrit 29.3 % (33.0-51.0); Hemoglobin 9.7 g/dL (11.5-16.0); Mean Corpuscular HGB Conc 33.1 g/dL (31.5-36.5); Mean Corpuscular Volume 83 fL (80-100); NRBC ABSOLUTE 0.00 K/mm3 (0.00-0.02); NRBC Auto 0.0 /100 WBC (0.0-0.2); Platelet Count 527 K/mm3 (150-400); RDW Coefficient Variation 14.6 % (11.7-14.2); RDW Standard Deviation 43.5 fL (35.1-46.3)
[2025-07-20 07:32] VITALS: BP 95/67
[2025-07-20 07:37] LABS: Anion Gap 11.0 mmol/L (3-11); Blood Urea Nitrogen 7.0 mg/dL (8-24); CO2, Blood 22.0 mmol/L (21-32); Calcium, Blood 8.6 mg/dL (8.5-10.1); Chloride, Blood 106.0 mmol/L (98-108); Creatinine, Blood 0.39 mg/dL (0.40-1.00); Glucose, Blood 98.0 mg/dL (70-99); Potassium, Blood 3.9 mmol/L (3.5-5.5); Sodium, Blood 135.0 mmol/L (136-145)
[2025-07-20 08:11] LABS: BAND PERCENT MAN 5 % (0-8); BASOPHILS ABSOLUTE MAN 0.00 K/mm3 (0.00-0.23); BASOPHILS PERCENT MAN 0 % (0-2); EOSINOPHILS ABSOLUTE MAN 0.14 K/mm3 (0.00-0.68); EOSINOPHILS PERCENT MAN 1 % (0-6); LYMPHOCYTES ABSOLUTE MAN 1.15 K/mm3 (0.84-5.20); LYMPHOCYTES PERCENT MAN 8 % (21-46); METAMYELOCYTE ABSOLUTE MAN 0.28 K/mm3 (0.00-0.00); METAMYELOCYTE PERCENT MAN 2 % (0-0); MONOCYTES ABSOLUTE MAN 0.72 K/mm3 (0.16-1.47); MONOCYTES PERCENT MAN 5 % (4-13); NEUTROPHILS ABSOLUTE MAN 12.01 K/mm3 (1.96-9.15); PLASMA CELL ABSOLUTE MAN 0.14 K/mm3 (0.00-0.00); PLASMA CELLS PERCENT MAN 1 % (0-0); SEG NEUTROPHILS PERCENT MAN 78 % (41-73)
--- NOTE | 2025-07-20 08:29 | NUR ---
SUMMARY PT HOPING FOR DISCHARGE TODAY.
[2025-07-20 10:03] VITALS: BP 108/67
[2025-07-20] MEDS ORDERED: DIGOX250 MCG PO (11:32)
[2025-07-20] MEDS ORDERED: ALUM-MAG HYDROX30 M2 PO (11:32)
[2025-07-20] MEDS ORDERED: SIME80CH PO (11:33)
--- NOTE | 2025-07-20 13:30 | NUR ---
DISCHARGE NOTE S/P EXP LAP W/ COLECTOMY 07/12. PATIENT ALERT AND ORIENTED X4. COMMUNICATING NEEDS EFFECTIVELY. SBP 90s-100s, MAP >65. ASYMPTOMATIC W/ POSITION CHANGES. DENIES CHEST PAIN, PRESSURE. BASELINE PER PATIENT. HR 90s-110s. PO DIGOXIN ADMINISTERED PER EMAR. ON ROOM AIR - SATs >90%. CHEST XRAY OBTAINED THIS MORNING. PATIENT USING INCENTIVE SPIROMETER INSTRUCTED - DEVICE PROVIDED FOR USE AT HOME. OSTOMY LLQ W/ MODERATE LOOSE BROWN STOOL. OSTOMY BEEFY, PINK. DEVICE CHANGED W/ GIANNA RN - PATIENT AND FAMILY RECEPTIVE TO EDUCATION, ASKING FREQUENT QUESTIONS TO GAIN FURTHER UNDERSTANDING OF DEVICE MANAGEMENT. TOLERATING REGULAR DIET. MIDLINE INCISION W/ MARV DRESSING - MARV REMOVED PER MD ERNST. DEREK TO BE REMOVED OUTPATIENT. WRITTEN AND VERBAL EDUCATION PROVIDED - PATIENT STATES UNDERSTANDING. IV REMOVED. PERSONAL BELONGINGS W/ PATIENT. PATIENT TRANSFERRED TO PERSONAL VEHICLE VIA .
== END 2025-07-20 13:33 | disposition home health service (06) | DRG 329 ==
LOC: ER 08:12 → SURS 11:42 → ERHOLD 11:42 → PCU 12:49 → SURS 15:29 → ICUE 17:24 → PCU 18:57 → SURS 07-16 21:21
PROVIDERS: Emergency Medicine; Student in an Organized Health Care Education/Training Program; Surgery; ADMIT Internal Medicine
PROC: 0DTG0ZZ Resection of Left Large Intestine, Open Approach (ICD-10-PCS; 2025-07-12)
PROC: 0D1L0Z4 Bypass Transverse Colon to Cutaneous, Open Approach (ICD-10-PCS; principal; 2025-07-12 12:45)
PROC: 3E0336Z Introduction of Nutritional Substance into Peripheral Vein, Percutaneous Approach (ICD-10-PCS; 2025-07-13)
PROC: 5A09357 Assistance with Respiratory Ventilation, Less than 24 Consecutive Hours, Continuous Positive Airway Pressure (ICD-10-PCS; 2025-07-13)
DX: K57.20 Diverticulitis of large intestine with perforation and abscess without bleeding (principal); J96.01 Acute respiratory failure with hypoxia; K65.0 Generalized (acute) peritonitis; J96.02 Acute respiratory failure with hypercapnia; J90 Pleural effusion, not elsewhere classified; Z66 Do not resuscitate; E03.9 Hypothyroidism, unspecified; M19.90 Unspecified osteoarthritis, unspecified site; D64.9 Anemia, unspecified; E83.39 Other disorders of phosphorus metabolism; E87.6 Hypokalemia; K52.9 Noninfective gastroenteritis and colitis, unspecified; T40.2X5A Adverse effect of other opioids, initial encounter; Z98.890 Other specified postprocedural states; K66.8 Other specified disorders of peritoneum; I48.0 Paroxysmal atrial fibrillation; I49.1 Atrial premature depolarization
CPT/HCPCS: 36415; 71045; 74177; 80048; 80053; 80162; 81001; 82330; 82728; 82803; 82947; 83540; 83550; 83690; 83735; 84100; 84145; 84478; 85025; 85027; 85610; 85730; 88307; 93005; 93010; 93306; 94660; 94762; 96365-59; 96375; 96376; 97110; 97116; 97161; 97165; 97530; 97535; 99285-25; A9270; J0330; J0612; J0780; J1100; J1160; J1171; J1750; J1885; J2250; J2312; J2371; J2405; J2543; J2704; J2795; J3010; J3411; J3480; J7030; J7040; J7050; J7060; J7070; J7120; Q9967

== ENCOUNTER → 2025-07-24 | Outpatient (CLI) | payer MEDICARE, OTHER ==
[~2025-07-24] MED LIST: ADTHYZA PO; ALUM-MAG HYDROX30 M2 PO; DIGOX250 MCG PO; SIME80CH PO
[2025-07-24 14:21] LABS: BASOPHILS ABSOLUTE AUTO 0.03 K/mm3 (0.00-0.23); BASOPHILS PERCENT AUTO 0 % (0-2); EOSINOPHILS ABSOLUTE AUTO 0.05 K/mm3 (0.00-0.68); EOSINOPHILS PERCENT AUTO 1 % (0-6); Hematocrit 27.8 % (33.0-51.0); Hemoglobin 8.9 g/dL (11.5-16.0); IMMATURE GRAN ABSOLUTE AUTO 0.22 K/mm3 (0.00-0.10); IMMATURE GRAN PERCENT AUTO 2 % (0-1); LYMPHOCYTES ABSOLUTE AUTO 1.12 K/mm3 (0.84-5.20); LYMPHOCYTES PERCENT AUTO 12 % (21-46); MONOCYTES ABSOLUTE AUTO 0.92 K/mm3 (0.16-1.47); MONOCYTES PERCENT AUTO 10 % (4-13); Mean Corpuscular HGB Conc 32.0 g/dL (31.5-36.5); Mean Corpuscular Volume 86 fL (80-100); NEUTROPHILS ABSOLUTE AUTO 7.16 K/mm3 (1.96-9.15); NEUTROPHILS PERCENT AUTO 75 % (41-73); NRBC ABSOLUTE 0.00 K/mm3 (0.00-0.02); NRBC Auto 0.0 /100 WBC (0.0-0.2); Platelet Count 807 K/mm3 (150-400); RDW Coefficient Variation 15.3 % (11.7-14.2); RDW Standard Deviation 46.4 fL (35.1-46.3)
== END ==
LOC: LAB 14:14 → LAB SHORT 14:14
PROVIDERS: Nurse Practitioner Family
DX: D72.829 Elevated white blood cell count, unspecified (principal)
CPT/HCPCS: 85025

== ENCOUNTER → 2025-08-11 | Outpatient (CLI) | payer MEDICARE, OTHER ==
[2025-08-11 18:20] LABS: BASOPHILS ABSOLUTE AUTO 0.04 K/mm3 (0.00-0.23); BASOPHILS PERCENT AUTO 1 % (0-2); EOSINOPHILS ABSOLUTE AUTO 0.21 K/mm3 (0.00-0.68); EOSINOPHILS PERCENT AUTO 3 % (0-6); Hematocrit 31.4 % (33.0-51.0); Hemoglobin 9.6 g/dL (11.5-16.0); IMMATURE GRAN ABSOLUTE AUTO 0.06 K/mm3 (0.00-0.10); IMMATURE GRAN PERCENT AUTO 1 % (0-1); LYMPHOCYTES ABSOLUTE AUTO 2.02 K/mm3 (0.84-5.20); LYMPHOCYTES PERCENT AUTO 25 % (21-46); MONOCYTES ABSOLUTE AUTO 0.77 K/mm3 (0.16-1.47); MONOCYTES PERCENT AUTO 10 % (4-13); Mean Corpuscular HGB Conc 30.6 g/dL (31.5-36.5); Mean Corpuscular Volume 85 fL (80-100); NEUTROPHILS ABSOLUTE AUTO 5.03 K/mm3 (1.96-9.15); NEUTROPHILS PERCENT AUTO 62 % (41-73); NRBC ABSOLUTE 0.00 K/mm3 (0.00-0.02); NRBC Auto 0.0 /100 WBC (0.0-0.2); Platelet Count 726 K/mm3 (150-400); RDW Coefficient Variation 15.0 % (11.7-14.2); RDW Standard Deviation 45.8 fL (35.1-46.3)
== END ==
LOC: LAB SHORT 11:05 → LAB 11:05
PROVIDERS: Nurse Practitioner Family
DX: D64.9 Anemia, unspecified (principal)
CPT/HCPCS: 85025

== ENCOUNTER → 2025-09-08 | Outpatient (CLI) | payer MEDICARE, OTHER ==
[~2025-09-08] MED LIST changes: +DOCU100 PO; +Estrace Vagin42.5 GM VAG; +PROG100 PO; +Percocet 5-3251 EACH PO
[2025-09-08 17:48] LABS: BASOPHILS ABSOLUTE AUTO 0.05 K/mm3 (0.00-0.23); BASOPHILS PERCENT AUTO 1 % (0-2); EOSINOPHILS ABSOLUTE AUTO 0.16 K/mm3 (0.00-0.68); EOSINOPHILS PERCENT AUTO 2 % (0-6); Hematocrit 30.4 % (33.0-51.0); Hemoglobin 9.3 g/dL (11.5-16.0); IMMATURE GRAN ABSOLUTE AUTO 0.03 K/mm3 (0.00-0.10); IMMATURE GRAN PERCENT AUTO 0 % (0-1); LYMPHOCYTES ABSOLUTE AUTO 1.88 K/mm3 (0.84-5.20); LYMPHOCYTES PERCENT AUTO 24 % (21-46); MONOCYTES ABSOLUTE AUTO 0.74 K/mm3 (0.16-1.47); MONOCYTES PERCENT AUTO 9 % (4-13); Mean Corpuscular HGB Conc 30.6 g/dL (31.5-36.5); Mean Corpuscular Volume 82 fL (80-100); NEUTROPHILS ABSOLUTE AUTO 5.11 K/mm3 (1.96-9.15); NEUTROPHILS PERCENT AUTO 64 % (41-73); NRBC ABSOLUTE 0.00 K/mm3 (0.00-0.02); NRBC Auto 0.0 /100 WBC (0.0-0.2); Platelet Count 489 K/mm3 (150-400); RDW Coefficient Variation 15.5 % (11.7-14.2); RDW Standard Deviation 45.8 fL (35.1-46.3)
== END | disposition home or self-care (01) ==
LOC: LAB SHORT 11:12 → LAB 11:12
PROVIDERS: Nurse Practitioner Family
DX: D64.9 Anemia, unspecified (principal)
CPT/HCPCS: 85025

== ENCOUNTER 2025-09-13 12:39 | Emergency (ER) | payer MEDICARE, OTHER ==
[~2025-09-13] VITALS: Ht 160 cm; Wt 49.9 kg
[~2025-09-13 12:39] MED LIST changes: -DOCU100 PO; -Estrace Vagin42.5 GM VAG; -PROG100 PO; -Percocet 5-3251 EACH PO
[2025-09-13] MEDS ORDERED: PROG100 PO (13:01)
[2025-09-13] MEDS ORDERED: Estrace Vagin42.5 GM (13:02)
[2025-09-13 13:16] LABS: BASOPHILS ABSOLUTE AUTO 0.04 K/mm3 (0.00-0.23); BASOPHILS PERCENT AUTO 1 % (0-2); EOSINOPHILS ABSOLUTE AUTO 0.08 K/mm3 (0.00-0.68); EOSINOPHILS PERCENT AUTO 1 % (0-6); Hematocrit 31.4 % (33.0-51.0); Hemoglobin 9.7 g/dL (11.5-16.0); IMMATURE GRAN ABSOLUTE AUTO 0.03 K/mm3 (0.00-0.10); IMMATURE GRAN PERCENT AUTO 0 % (0-1); LYMPHOCYTES ABSOLUTE AUTO 1.68 K/mm3 (0.84-5.20); LYMPHOCYTES PERCENT AUTO 23 % (21-46); MONOCYTES ABSOLUTE AUTO 0.40 K/mm3 (0.16-1.47); MONOCYTES PERCENT AUTO 6 % (4-13); Mean Corpuscular HGB Conc 30.9 g/dL (31.5-36.5); Mean Corpuscular Volume 82 fL (80-100); NEUTROPHILS ABSOLUTE AUTO 4.97 K/mm3 (1.96-9.15); NEUTROPHILS PERCENT AUTO 69 % (41-73); NRBC ABSOLUTE 0.00 K/mm3 (0.00-0.02); NRBC Auto 0.0 /100 WBC (0.0-0.2); Platelet Count 592 K/mm3 (150-400); RDW Coefficient Variation 15.7 % (11.7-14.2); RDW Standard Deviation 45.7 fL (35.1-46.3)
[2025-09-13 13:29] LABS: Alanine Aminotransfer (ALT/SGP 15.0 U/L (12-78); Albumin, Blood 3.2 g/dL (3.4-5.0); Albumin/Globulin Ratio 0.7 (0.8-1.8); Anion Gap 11.0 mmol/L (3-11); Aspartate Aminotrans (AST/SGOT 19.0 U/L (12-37); Bilirubin, Total 0.2 mg/dL (0.1-1.0); Blood Urea Nitrogen 13.0 mg/dL (8-24); CO2, Blood 22.0 mmol/L (21-32); Calcium, Blood 8.9 mg/dL (8.5-10.1); Chloride, Blood 106.0 mmol/L (98-108); Creatinine, Blood 0.52 mg/dL (0.40-1.00); Globulin, Blood 4.3 g/dL (2.2-4.0); Glucose, Blood 104.0 mg/dL (70-99); Potassium, Blood 3.6 mmol/L (3.5-5.5); Sodium, Blood 135.0 mmol/L (136-145); Total Protein, Blood 7.5 g/dL (6.4-8.2)
[2025-09-13] MEDS ORDERED: FentaNYL Citrate 50 MCG/ML 2 ML Injection IV ONE (14:15)
[2025-09-13] MEDS ORDERED: Percocet 5-3251 EACH PO (14:17)
[2025-09-13] MEDS ORDERED: DOCU100 PO (14:17)
[2025-09-13] MEDS ORDERED: Ondansetron HCl 2 MG / ML 2ML Vial IV ONE (14:20)
[2025-09-13 15:35] VITALS: BP 114/56
== END 2025-09-13 15:46 | disposition home or self-care (01) ==
LOC: ER 12:39
PROVIDERS: Emergency Medicine
DX: K59.00 Constipation, unspecified (principal); E03.9 Hypothyroidism, unspecified; Z93.3 Colostomy status; Z91.0110 Allergy to milk products, unspecified; Z91.014 Allergy to mammalian meats; Z91.018 Allergy to other foods; Z91.0120 Allergy to eggs, unspecified; Z91.02 Food additives allergy status; Z79.890 Hormone replacement therapy; Z79.899 Other long term (current) drug therapy
CPT/HCPCS: 74177; 80053; 83690; 85025; 93005; 93010; A9270; J2405; J3010; Q9967

== ENCOUNTER 2025-09-15 13:26 | Inpatient (IN) | payer MEDICARE, OTHER ==
[~2025-09-15] VITALS: Ht 160 cm; Wt 51.3 kg
[~2025-09-15 13:26] MED LIST changes: +DOCU100 PO; +Estrace Vagin42.5 GM VAG; +PROG100 PO; +Percocet 5-3251 EACH PO
[2025-09-15] MEDS ORDERED: Ondansetron HCl 2 MG / ML 2ML Vial IV ONE (14:55)
[2025-09-15 15:22] LABS: BASOPHILS ABSOLUTE AUTO 0.02 K/mm3 (0.00-0.23); BASOPHILS PERCENT AUTO 0 % (0-2); EOSINOPHILS ABSOLUTE AUTO 0.03 K/mm3 (0.00-0.68); EOSINOPHILS PERCENT AUTO 0 % (0-6); Hematocrit 38.1 % (33.0-51.0); Hemoglobin 11.4 g/dL (11.5-16.0); IMMATURE GRAN ABSOLUTE AUTO 0.06 K/mm3 (0.00-0.10); IMMATURE GRAN PERCENT AUTO 1 % (0-1); LYMPHOCYTES ABSOLUTE AUTO 1.52 K/mm3 (0.84-5.20); LYMPHOCYTES PERCENT AUTO 13 % (21-46); MONOCYTES ABSOLUTE AUTO 0.74 K/mm3 (0.16-1.47); MONOCYTES PERCENT AUTO 6 % (4-13); Mean Corpuscular HGB Conc 29.9 g/dL (31.5-36.5); Mean Corpuscular Volume 81 fL (80-100); NEUTROPHILS ABSOLUTE AUTO 9.72 K/mm3 (1.96-9.15); NEUTROPHILS PERCENT AUTO 80 % (41-73); NRBC ABSOLUTE 0.00 K/mm3 (0.00-0.02); NRBC Auto 0.0 /100 WBC (0.0-0.2); Platelet Count 628 K/mm3 (150-400); RDW Coefficient Variation 15.9 % (11.7-14.2); RDW Standard Deviation 46.4 fL (35.1-46.3)
[2025-09-15 15:44] LABS: Alanine Aminotransfer (ALT/SGP 19.0 U/L (12-78); Albumin, Blood 3.6 g/dL (3.4-5.0); Albumin/Globulin Ratio 0.8 (0.8-1.8); Anion Gap 11.0 mmol/L (3-11); Aspartate Aminotrans (AST/SGOT 20.0 U/L (12-37); Bilirubin, Total 0.4 mg/dL (0.1-1.0); Blood Urea Nitrogen 10.0 mg/dL (8-24); CO2, Blood 24.0 mmol/L (21-32); Calcium, Blood 10.1 mg/dL (8.5-10.1); Chloride, Blood 100.0 mmol/L (98-108); Creatinine, Blood 0.52 mg/dL (0.40-1.00); Globulin, Blood 4.8 g/dL (2.2-4.0); Glucose, Blood 107.0 mg/dL (70-99); Potassium, Blood 4.1 mmol/L (3.5-5.5); Sodium, Blood 131.0 mmol/L (136-145); Total Protein, Blood 8.4 g/dL (6.4-8.2)
[2025-09-15] MEDS ORDERED: NS 1,000 ML IV SCH ×2 (16:45→18:35)
[2025-09-15] MEDS ORDERED: FentaNYL Citrate 50 MCG/ML 2 ML Injection IV ONE (16:45)
[2025-09-15] MEDS ORDERED: Metoclopramide HCl 5MG / ML 2ML Vial IV ONE (16:45)
[2025-09-15] MEDS ORDERED: FLU VACC TS2025(65UP)/MF59C/PF 45 MCG/0.5 ML SYRINGE IM SCH (18:35)
[2025-09-15] MEDS ORDERED: Ondansetron HCl 2 MG / ML 2ML Vial IV PRN (18:35)
[2025-09-15] MEDS ORDERED: FentaNYL Citrate 50 MCG/ML 2 ML Injection IV PRN ×2 (18:40→20:30)
[2025-09-15 21:53] VITALS: BP 115/68
--- NOTE | 2025-09-15 22:32 | NUR ---
ADMIT NOTE 70 YR OLD FEMALE ADMITTED TO FLOOR FROM THE ED WITH DX OF SMALL BOWEL OBSTRUCTION. VSS. HX RECENT STOMA PLACEMENT OF RIGHT LOWER ABD DUE TO RUPTURE OF INTESTINE. A/O X 4. HYPOACTIVE BOWEL SOUNDS. IVF OF NS INFUSING. NPO WITH CONT LOW SUCTION WITH NG TUBE. ORIENTED TO USE OF CALL LIGHT AND BED CONTROL. AGREES TO USE CALL LIGHT PRIOR TO GETTING OOB. WILL CONT TO MONITOR.
--- NOTE | 2025-09-15 23:16 | NUR ---
SUCTION CHANGED TO LOW INTERMITTENT, PT VOICED FEELING OK AT THIS TIME.
[2025-09-16 00:28] VITALS: BP 114/67
--- NOTE | 2025-09-16 01:08 | NUR ---
PRODUCTION ANALYST SURGERY CONSULT CALL PLACED TO PRODUCTION ANALYST ANSWERING SERVICE RE PT SBO. MAISHA REPORTED SHE WOULD NOTIFY DR RAGLAND IN THE AM.
--- NOTE | 2025-09-16 04:16 | NUR ---
SAFEMAKER SUMMARY ADMITTED TO FLOOR EARLIER IN THE SHIFT WITH DX OF SBO. NPO. RECENT HX OF COLOSTOMY PLACEMENT BUT NO RECENT BM. ADMITTED TO FLOOR WITH NG TUBE, TO INT LOW SUCTION, NOTED BROWN RETURNS. UP WITH ASSIST TO BATHROOM. A/O X 4. MD ORDERED SURGERY CONSULT, CALL PLACED TO GEN SURGERY MAXILLOFACIAL PROSTHODONTIST, MAISHA REPORTED THEY WOULD NOTIFY MD IN THE AM. HAS BEEN RESTING QUIETLY WITH FEW INTERRUPTIONS SINCE. CALL LIGHT IN REACH, RAILS UP X 2 AND BED IN LOW POSITION FOR SAFETY. WILL CONT TO MONITOR.
[2025-09-16 05:24] LABS: BASOPHILS ABSOLUTE AUTO 0.03 K/mm3 (0.00-0.23); BASOPHILS PERCENT AUTO 0 % (0-2); EOSINOPHILS ABSOLUTE AUTO 0.07 K/mm3 (0.00-0.68); EOSINOPHILS PERCENT AUTO 1 % (0-6); Hematocrit 31.5 % (33.0-51.0); Hemoglobin 9.8 g/dL (11.5-16.0); IMMATURE GRAN ABSOLUTE AUTO 0.04 K/mm3 (0.00-0.10); IMMATURE GRAN PERCENT AUTO 1 % (0-1); LYMPHOCYTES ABSOLUTE AUTO 1.55 K/mm3 (0.84-5.20); LYMPHOCYTES PERCENT AUTO 18 % (21-46); MONOCYTES ABSOLUTE AUTO 0.83 K/mm3 (0.16-1.47); MONOCYTES PERCENT AUTO 9 % (4-13); Mean Corpuscular HGB Conc 31.1 g/dL (31.5-36.5); Mean Corpuscular Volume 82 fL (80-100); NEUTROPHILS ABSOLUTE AUTO 6.31 K/mm3 (1.96-9.15); NEUTROPHILS PERCENT AUTO 71 % (41-73); NRBC ABSOLUTE 0.00 K/mm3 (0.00-0.02); NRBC Auto 0.0 /100 WBC (0.0-0.2); Platelet Count 524 K/mm3 (150-400); RDW Coefficient Variation 15.9 % (11.7-14.2); RDW Standard Deviation 46.9 fL (35.1-46.3)
[2025-09-16 06:02] LABS: Anion Gap 12.0 mmol/L (3-11); Blood Urea Nitrogen 8.0 mg/dL (8-24); CO2, Blood 23.0 mmol/L (21-32); Calcium, Blood 8.9 mg/dL (8.5-10.1); Chloride, Blood 104.0 mmol/L (98-108); Creatinine, Blood 0.4 mg/dL (0.40-1.00); Glucose, Blood 78.0 mg/dL (70-99); Magnesium, Blood 2.0 mg/dL (1.6-2.4); Potassium, Blood 3.4 mmol/L (3.5-5.5); Sodium, Blood 136.0 mmol/L (136-145)
[2025-09-16 08:13] VITALS: BP 117/62
--- NOTE | 2025-09-16 14:12 | NUR ---
Pt. is awake and sitting in a chair when she welcomed my visit. Pt. is pleasant. Pt. verbalized remembering this product introduction manager from a previous visit. facilitated a lengthy life review and considered matters of zia and her family. Pt. verbalized that she felt God was teaching her something throughout this season of health struggles. Listened with empathy and a calming presence. Pt. displayed evidenceo of having been encouraged. Prayed with the Pt. pt. verbalized gratitude for e spiritual care visit.
[2025-09-16 15:23] VITALS: BP 117/70
[2025-09-16 19:38] VITALS: BP 109/67
--- NOTE | 2025-09-16 19:48 | NUR ---
SHIFT SUMMARY- PT WAS OK'D FOR ICE CHIPS TODAY PER DR LUQUE. SHE HAS BEEN ENCOURAGED TO WALK OFF AND ON T/O THE DAY. PT HAS A PEDOMETER IN PLACE SHE STATED SHE HAD 3200 STEPS IN TODAY. PT HAS HAD NO PAIN MEDS THIS SHIFT. AT THE TIME OF BEDSIDE REPORT SHE STATES SHE HAS SOME PRESSURE IN HER ABDOMEN AND STATES SHE DOES NOT WANT ANY PAIN MEDICINE AT THIS TIME. NG TUBE HOOKED TO LOW INTERMITTENT SUCTION, SUCTION WAS ADJUSTED UP BY DR LUQUE WHEN HE WAS AT THE BEDSIDE. AT THE TIME OF BEDSIDE REPORT THE PT IS SITTING UP TALKING TO STAFF, NO S&S OF DISTRESS NOTED.
[2025-09-16 23:47] VITALS: BP 117/66
[2025-09-17] MEDS ORDERED: D5W-1/2NS 1,000 ML IV SCH (00:15)
[2025-09-17 04:47] VITALS: BP 113/61
[2025-09-17 05:02] LABS: BASOPHILS ABSOLUTE AUTO 0.05 K/mm3 (0.00-0.23); BASOPHILS PERCENT AUTO 1 % (0-2); EOSINOPHILS ABSOLUTE AUTO 0.11 K/mm3 (0.00-0.68); EOSINOPHILS PERCENT AUTO 1 % (0-6); Hematocrit 31.3 % (33.0-51.0); Hemoglobin 9.5 g/dL (11.5-16.0); IMMATURE GRAN ABSOLUTE AUTO 0.05 K/mm3 (0.00-0.10); IMMATURE GRAN PERCENT AUTO 1 % (0-1); LYMPHOCYTES ABSOLUTE AUTO 1.45 K/mm3 (0.84-5.20); LYMPHOCYTES PERCENT AUTO 16 % (21-46); MONOCYTES ABSOLUTE AUTO 0.83 K/mm3 (0.16-1.47); MONOCYTES PERCENT AUTO 9 % (4-13); Mean Corpuscular HGB Conc 30.4 g/dL (31.5-36.5); Mean Corpuscular Volume 82 fL (80-100); NEUTROPHILS ABSOLUTE AUTO 6.78 K/mm3 (1.96-9.15); NEUTROPHILS PERCENT AUTO 73 % (41-73); NRBC ABSOLUTE 0.00 K/mm3 (0.00-0.02); NRBC Auto 0.0 /100 WBC (0.0-0.2); Platelet Count 476 K/mm3 (150-400); RDW Coefficient Variation 16.1 % (11.7-14.2); RDW Standard Deviation 47.1 fL (35.1-46.3)
[2025-09-17 05:26] LABS: Anion Gap 9.0 mmol/L (3-11); Blood Urea Nitrogen 12.0 mg/dL (8-24); CO2, Blood 27.0 mmol/L (21-32); Calcium, Blood 8.6 mg/dL (8.5-10.1); Chloride, Blood 106.0 mmol/L (98-108); Creatinine, Blood 0.38 mg/dL (0.40-1.00); Glucose, Blood 101.0 mg/dL (70-99); Potassium, Blood 3.1 mmol/L (3.5-5.5); Sodium, Blood 139.0 mmol/L (136-145)
[2025-09-17 07:11] VITALS: BP 116/60
--- NOTE | 2025-09-17 07:32 | NUR ---
SHIFT SUMMARY AT START OF SHIFT, PT SITTING UP IN BED RESTING COMFORTABLY. NG SUCTION LOW INTERMITTENT. PT STATED HER BLOOD SUGAR GETS LOW EVERY NOW AND THEN DURING SHIFT REPORT. CALLED HOSPITALIST FOR Q6 BLOOD SUGAR CHECKS. HOSPITALIST STATED NO NEED FOR Q6 BLOOD SUGAR CHECKS BECAUSE THE LOWEST WE VE SEEN IS 70. PT SLEEPING UPON 2200 ROUNDING. PT FEELING LIKE THEIR BLOOD SUGAR IS LOW. UPON BLOOD SUGAR CHECK, PTS GLUCOSE LEVEL IS 60. CALLING HOSPITALIST [id number]. DOCTOR ORDERED D5 W/50% NS X 1000ML @100ML/HR, THEN REEVALUATE BLOOD SUGAR. PT BEGAN HAVING BM THIS AM. WILL CONTINUE TO MONITOR.
[2025-09-17] MEDS ORDERED: NS 250 ML IV PRN (13:20)
[2025-09-17 16:56] VITALS: BP 133/70
--- NOTE | 2025-09-17 17:09 | NUR ---
NG TUBE DC'D- PT WILLING TO HAVE THE NG TUBE DC'D. NG TUBE HAS BEEN CAPPED AND NOT CONNECTED TO SUCTION AND THE PT HAS HAD CLEAR LIQUID BROTH AND ICE CHIPS. SHE STATES THAT SHE HAS SOME GAS FROM SWALLOWING AIR, SHE HAS HAD A SOLID STOOL FROM THE OSTOMY. CALLED DR BERRY AND HE GAVE THE ORDER TO DC. NG TUBE WAS DC'D WITH NO DIFFICULTY. PT TOLLERATED WELL. SHE WAS ABLE TO COUGH AND CLEAR, THOUGH SHE STATES THE THROAT IS SORE, SO SHE CAN NOT COUGH TOO HARD.
[2025-09-17 19:29] VITALS: BP 95/58
--- NOTE | 2025-09-17 19:50 | NUR ---
SHIFT SUMMARY- PT HAD A CLEAR LIQUID DIET FOR DINNER. CALLED DR BERRY AND SPOKE ABOUT PO MEDS. SOME MEDS ORDERED. PT HAD A GOOD AMOUNT OF SOLID STOOL OUTPUT THROUGH THE OSTOMY. NIGHT RN AWARE THE PT IS REQUESTING TO CHASNGE THE APPLIANCE. PT A&O X4 SITTING UP IN BED, CALL LIGHT IN REACH AT THE TIME OF BEDSIDE REPORT. MDENIES ANY PAIN AT THE TIME OF REPORT. FULL LIQUID DIET ORDERED FOR TOMORROW AM.
[2025-09-18 04:21] VITALS: BP 106/63
[2025-09-18 04:32] LABS: BASOPHILS ABSOLUTE AUTO 0.05 K/mm3 (0.00-0.23); BASOPHILS PERCENT AUTO 1 % (0-2); EOSINOPHILS ABSOLUTE AUTO 0.25 K/mm3 (0.00-0.68); EOSINOPHILS PERCENT AUTO 3 % (0-6); Hematocrit 28.1 % (33.0-51.0); Hemoglobin 8.8 g/dL (11.5-16.0); IMMATURE GRAN ABSOLUTE AUTO 0.03 K/mm3 (0.00-0.10); IMMATURE GRAN PERCENT AUTO 0 % (0-1); LYMPHOCYTES ABSOLUTE AUTO 1.71 K/mm3 (0.84-5.20); LYMPHOCYTES PERCENT AUTO 23 % (21-46); MONOCYTES ABSOLUTE AUTO 0.76 K/mm3 (0.16-1.47); MONOCYTES PERCENT AUTO 10 % (4-13); Mean Corpuscular HGB Conc 31.3 g/dL (31.5-36.5); Mean Corpuscular Volume 83 fL (80-100); NEUTROPHILS ABSOLUTE AUTO 4.68 K/mm3 (1.96-9.15); NEUTROPHILS PERCENT AUTO 63 % (41-73); NRBC ABSOLUTE 0.00 K/mm3 (0.00-0.02); NRBC Auto 0.0 /100 WBC (0.0-0.2); Platelet Count 413 K/mm3 (150-400); RDW Coefficient Variation 16.1 % (11.7-14.2); RDW Standard Deviation 47.8 fL (35.1-46.3)
[2025-09-18 05:09] LABS: Anion Gap 8.0 mmol/L (3-11); Blood Urea Nitrogen 5.0 mg/dL (8-24); CO2, Blood 26.0 mmol/L (21-32); Calcium, Blood 8.7 mg/dL (8.5-10.1); Chloride, Blood 108.0 mmol/L (98-108); Creatinine, Blood 0.43 mg/dL (0.40-1.00); Glucose, Blood 79.0 mg/dL (70-99); Potassium, Blood 3.8 mmol/L (3.5-5.5); Sodium, Blood 138.0 mmol/L (136-145)
--- NOTE | 2025-09-18 06:58 | NUR ---
SHIFT SUMMARY AT START OF SHIFT, PT SITTING UP IN BED. SHE IS IN GOOD SPIRITS AFTER HAVING NG TUBE DC D DURING DAY SHIFT. SHE IS NOW ON CLEAR FLUIDS, THEN WILL BE ON FULL LIQUID DIET IN AM. PT ABLE TO HAVE BMS TODAY. NEEDS A NEW OSTOMY BAG. OSTOMY BAG CHANGED AND PT RESTING PEACEFULLY. PT SLEPT THROUGH NIGHT. SHE WOKE IN A HAPPY MOOD AND READY TO START WORKING ON GETTING HOME.
[2025-09-18 07:32] VITALS: BP 105/62
--- NOTE | 2025-09-18 13:44 | NUR ---
DISCHARGE NOTE- PT WAS GIVEN VERBAL AND WRITTEN DISCHARGE INSTRUCTIONS AND ACKNOWLEDGED UNDERSTANDING OF THEM. PT HHAD A NOTICABLE LENGTHENING OF HER STOMA; CALLED DR LUQUE AND SPOKE TO HIM HE STATED HE IS AWARE OF THE SMALL PROLAPSE, BUT THE PT IS OK TO DISCHARGE HOME NOW. PT REFUSED ESCORT AND WALKED OUT ON HER OWN. NO S&S OF DISTRESS NOTED AT THE TIME OF DISCHARGE.
== END 2025-09-18 13:05 | disposition home health service (06) | DRG 388 ==
LOC: ER 13:26 → MEDS 18:33 → ENPENDDIS 09-18 10:28 → MEDS 09-18 13:05
PROVIDERS: Family Medicine; Nurse Practitioner Acute Care; Physician Assistant; ADMIT Internal Medicine
PROC: 0D9670Z Drainage of Stomach with Drainage Device, Via Natural or Artificial Opening (ICD-10-PCS; principal; 2025-09-15)
DX: K56.609 Unspecified intestinal obstruction, unspecified as to partial versus complete obstruction (principal); E43 Unspecified severe protein-calorie malnutrition; E87.1 Hypo-osmolality and hyponatremia; E03.9 Hypothyroidism, unspecified; D72.829 Elevated white blood cell count, unspecified; E86.0 Dehydration; M19.90 Unspecified osteoarthritis, unspecified site; E86.1 Hypovolemia; E16.2 Hypoglycemia, unspecified; Z79.890 Hormone replacement therapy; Z90.49 Acquired absence of other specified parts of digestive tract; Z93.3 Colostomy status; Z68.20 Body mass index [BMI] 20.0-20.9, adult; Z79.891 Long term (current) use of opiate analgesic
CPT/HCPCS: 36415; 71045; 74177; 80048; 80053; 82947; 83605; 83690; 83735; 85025; 87040; 96361; 96374-59; 96375-59; 99285-25; A9270; J2405; J2765; J3010; J3480; J7030; J7042; J7050; Q9967

== ENCOUNTER 2025-10-10 22:20 | Emergency (ER) | payer MEDICARE, OTHER ==
[~2025-10-10] VITALS: Ht 160 cm; Wt 47.6 kg
[2025-10-10] MEDS ORDERED: NS 1,000 ML IV SCH (22:50)
[2025-10-10] MEDS ORDERED: Ondansetron 4 MG SoluTab SL ONE (22:55)
[2025-10-11] MEDS ORDERED: FentaNYL Citrate 50 MCG/ML 2 ML Injection IV ONE (00:15)
[2025-10-11 00:25] LABS: BASOPHILS ABSOLUTE AUTO 0.03 K/mm3 (0.00-0.23); BASOPHILS PERCENT AUTO 0 % (0-2); EOSINOPHILS ABSOLUTE AUTO 0.05 K/mm3 (0.00-0.68); EOSINOPHILS PERCENT AUTO 0 % (0-6); Hematocrit 32.4 % (33.0-51.0); Hemoglobin 10.2 g/dL (11.5-16.0); IMMATURE GRAN ABSOLUTE AUTO 0.06 K/mm3 (0.00-0.10); IMMATURE GRAN PERCENT AUTO 0 % (0-1); LYMPHOCYTES ABSOLUTE AUTO 1.00 K/mm3 (0.84-5.20); LYMPHOCYTES PERCENT AUTO 7 % (21-46); MONOCYTES ABSOLUTE AUTO 0.80 K/mm3 (0.16-1.47); MONOCYTES PERCENT AUTO 6 % (4-13); Mean Corpuscular HGB Conc 31.5 g/dL (31.5-36.5); Mean Corpuscular Volume 80 fL (80-100); NEUTROPHILS ABSOLUTE AUTO 12.05 K/mm3 (1.96-9.15); NEUTROPHILS PERCENT AUTO 86 % (41-73); NRBC ABSOLUTE 0.00 K/mm3 (0.00-0.02); NRBC Auto 0.0 /100 WBC (0.0-0.2); Platelet Count 424 K/mm3 (150-400); RDW Coefficient Variation 18.0 % (11.7-14.2); RDW Standard Deviation 51.9 fL (35.1-46.3)
[2025-10-11] MEDS ORDERED: Ondansetron HCl 2 MG / ML 2ML Vial IV ONE (00:30)
[2025-10-11 00:46] LABS: Alanine Aminotransfer (ALT/SGP 17.0 U/L (12-78); Albumin, Blood 3.2 g/dL (3.4-5.0); Albumin/Globulin Ratio 0.8 (0.8-1.8); Anion Gap 10.0 mmol/L (3-11); Aspartate Aminotrans (AST/SGOT 19.0 U/L (12-37); Bilirubin, Total 0.3 mg/dL (0.1-1.0); Blood Urea Nitrogen 20.0 mg/dL (8-24); CO2, Blood 25.0 mmol/L (21-32); Calcium, Blood 9.1 mg/dL (8.5-10.1); Chloride, Blood 106.0 mmol/L (98-108); Creatinine, Blood 0.49 mg/dL (0.40-1.00); Globulin, Blood 4.2 g/dL (2.2-4.0); Glucose, Blood 118.0 mg/dL (70-99); Magnesium, Blood 2.1 mg/dL (1.6-2.4); Phosphorus, Blood 2.5 mg/dL (2.5-4.9); Potassium, Blood 4.3 mmol/L (3.5-5.5); Sodium, Blood 137.0 mmol/L (136-145); Total Protein, Blood 7.4 g/dL (6.4-8.2)
[2025-10-11] MEDS ORDERED: HYDROmorphone HCl/Pf 1MG SYR ONE (00:46)
[2025-10-11] MEDS ORDERED: RX Prepack 2 Tabs Ondansetron ODT 4MG UD ONE (02:05)
[2025-10-11] MEDS ORDERED: RX Prepack 6 Tabs Oxycodone 5mg UD ONE (03:55)
[2025-10-11 04:14] VITALS: BP 111/64
== END 2025-10-11 04:16 | disposition home or self-care (01) ==
LOC: ER 22:20
PROVIDERS: Emergency Medicine
DX: K59.09 Other constipation (principal); E03.9 Hypothyroidism, unspecified; Z93.3 Colostomy status; Z91.02 Food additives allergy status; Z91.0110 Allergy to milk products, unspecified; Z91.014 Allergy to mammalian meats; Z91.018 Allergy to other foods; Z91.0120 Allergy to eggs, unspecified; Z79.890 Hormone replacement therapy; Z79.899 Other long term (current) drug therapy; Z59.89 Other problems related to housing and economic circumstances
CPT/HCPCS: 74018; 74177; 80053; 83735; 84100; 85025; 96374-59; 99284-25; A9270; J1171; J3010; J7030; Q9967

== ENCOUNTER 2025-10-16 17:54 | Inpatient (IN) | payer MEDICARE, OTHER ==
[~2025-10-16] VITALS: Ht 160 cm; Wt 47.6 kg
[2025-10-16] MEDS ORDERED: NS 1,000 ML IV SCH (19:00)
[2025-10-16] MEDS ORDERED: Morphine Sulfate 4 MG/1 ML Injection IV ONE (19:00)
[2025-10-16] MEDS ORDERED: Ondansetron HCl 2 MG / ML 2ML Vial IV ONE (19:00)
[2025-10-16 19:22] LABS: BASOPHILS ABSOLUTE AUTO 0.03 K/mm3 (0.00-0.23); BASOPHILS PERCENT AUTO 0 % (0-2); EOSINOPHILS ABSOLUTE AUTO 0.07 K/mm3 (0.00-0.68); EOSINOPHILS PERCENT AUTO 1 % (0-6); Hematocrit 33.1 % (33.0-51.0); Hemoglobin 10.1 g/dL (11.5-16.0); IMMATURE GRAN ABSOLUTE AUTO 0.05 K/mm3 (0.00-0.10); IMMATURE GRAN PERCENT AUTO 0 % (0-1); LYMPHOCYTES ABSOLUTE AUTO 1.63 K/mm3 (0.84-5.20); LYMPHOCYTES PERCENT AUTO 12 % (21-46); MONOCYTES ABSOLUTE AUTO 0.47 K/mm3 (0.16-1.47); MONOCYTES PERCENT AUTO 4 % (4-13); Mean Corpuscular HGB Conc 30.5 g/dL (31.5-36.5); Mean Corpuscular Volume 82 fL (80-100); NEUTROPHILS ABSOLUTE AUTO 10.85 K/mm3 (1.96-9.15); NEUTROPHILS PERCENT AUTO 83 % (41-73); NRBC ABSOLUTE 0.00 K/mm3 (0.00-0.02); NRBC Auto 0.0 /100 WBC (0.0-0.2); Platelet Count 463 K/mm3 (150-400); RDW Coefficient Variation 17.8 % (11.7-14.2); RDW Standard Deviation 53.0 fL (35.1-46.3)
[2025-10-16 19:37] LABS: Magnesium, Blood 2.3 mg/dL (1.6-2.4)
[2025-10-16 19:38] LABS: Alanine Aminotransfer (ALT/SGP 13.0 U/L (12-78); Albumin, Blood 2.9 g/dL (3.4-5.0); Albumin/Globulin Ratio 0.7 (0.8-1.8); Anion Gap 14.0 mmol/L (3-11); Aspartate Aminotrans (AST/SGOT 14.0 U/L (12-37); Bilirubin, Total 0.4 mg/dL (0.1-1.0); Blood Urea Nitrogen 15.0 mg/dL (8-24); CO2, Blood 19.0 mmol/L (21-32); Calcium, Blood 9.3 mg/dL (8.5-10.1); Chloride, Blood 104.0 mmol/L (98-108); Creatinine, Blood 0.5 mg/dL (0.40-1.00); Globulin, Blood 4.1 g/dL (2.2-4.0); Glucose, Blood 105.0 mg/dL (70-99); Potassium, Blood 3.8 mmol/L (3.5-5.5); Sodium, Blood 133.0 mmol/L (136-145); Total Protein, Blood 7.0 g/dL (6.4-8.2)
[2025-10-16 21:27] LABS: Source, Urine Clean Catch
[2025-10-16 21:29] LABS: Bilirubin, Urine Neg (Neg); Glucose Qualitative, Urine Neg (Neg); Ketones, Urine 4+ (Neg); Leukocyte Esterase, Urine Neg (Neg); Protein, Urine 1+ (Neg); Specific Gravity, Urine 1.020 (1.003-1.022); Urobilinogen, Urine NORM (Normal)
[2025-10-16 21:31] LABS: Color, Urine Yellow (P-Yellow)
[2025-10-16 21:35] LABS: Red Blood Cells, Urine 0-2 /hpf (0-2); White Blood Cells, Urine Not Seen /hpf (0-5)
[2025-10-16] MEDS ORDERED: FLU VACC TS2025(65UP)/MF59C/PF 45 MCG/0.5 ML SYRINGE IM SCH (22:05)
[2025-10-16] MEDS ORDERED: Ondansetron HCl 2 MG / ML 2ML Vial IV PRN (22:05)
[2025-10-16] MEDS ORDERED: Naloxone HCl 0.4MG / ML 1ML Vial IV PRN (22:05)
[2025-10-16] MEDS ORDERED: Morphine Sulfate 4 MG/1 ML Injection IV PRN (22:05)
[2025-10-16 23:24] VITALS: BP 105/60
[2025-10-17 00:12] VITALS: BP 97/51
[2025-10-17 03:18] VITALS: BP 102/58
[2025-10-17] MEDS ORDERED: Morphine Sulfate 4 MG/1 ML Injection IV PRN (04:30)
[2025-10-17 04:43] LABS: BASOPHILS ABSOLUTE AUTO 0.02 K/mm3 (0.00-0.23); BASOPHILS PERCENT AUTO 0 % (0-2); EOSINOPHILS ABSOLUTE AUTO 0.03 K/mm3 (0.00-0.68); EOSINOPHILS PERCENT AUTO 0 % (0-6); Hematocrit 29.0 % (33.0-51.0); Hemoglobin 8.8 g/dL (11.5-16.0); IMMATURE GRAN ABSOLUTE AUTO 0.02 K/mm3 (0.00-0.10); IMMATURE GRAN PERCENT AUTO 0 % (0-1); LYMPHOCYTES ABSOLUTE AUTO 0.87 K/mm3 (0.84-5.20); LYMPHOCYTES PERCENT AUTO 13 % (21-46); MONOCYTES ABSOLUTE AUTO 0.23 K/mm3 (0.16-1.47); MONOCYTES PERCENT AUTO 3 % (4-13); Mean Corpuscular HGB Conc 30.3 g/dL (31.5-36.5); Mean Corpuscular Volume 81 fL (80-100); NEUTROPHILS ABSOLUTE AUTO 5.59 K/mm3 (1.96-9.15); NEUTROPHILS PERCENT AUTO 83 % (41-73); NRBC ABSOLUTE 0.00 K/mm3 (0.00-0.02); NRBC Auto 0.0 /100 WBC (0.0-0.2); Platelet Count 432 K/mm3 (150-400); RDW Coefficient Variation 17.4 % (11.7-14.2); RDW Standard Deviation 50.9 fL (35.1-46.3)
[2025-10-17 05:00] LABS: Alanine Aminotransfer (ALT/SGP 10.0 U/L (12-78); Albumin, Blood 2.5 g/dL (3.4-5.0); Albumin/Globulin Ratio 0.7 (0.8-1.8); Anion Gap 8.0 mmol/L (3-11); Aspartate Aminotrans (AST/SGOT 10.0 U/L (12-37); Bilirubin, Total 0.4 mg/dL (0.1-1.0); Blood Urea Nitrogen 10.0 mg/dL (8-24); CO2, Blood 23.0 mmol/L (21-32); Calcium, Blood 8.5 mg/dL (8.5-10.1); Chloride, Blood 108.0 mmol/L (98-108); Creatinine, Blood 0.44 mg/dL (0.40-1.00); Globulin, Blood 3.8 g/dL (2.2-4.0); Glucose, Blood 102.0 mg/dL (70-99); Magnesium, Blood 2.2 mg/dL (1.6-2.4); Potassium, Blood 3.9 mmol/L (3.5-5.5); Sodium, Blood 135.0 mmol/L (136-145); Total Protein, Blood 6.3 g/dL (6.4-8.2)
--- NOTE | 2025-10-17 05:27 | NUR ---
PT REQUESTED ONE DOSE OF IV MEDICATION FOR PAIN THIS SHIFT. LR RUNNING AT 75ML/HR. NO ACUTE EVENTS. VITALS STABLE WITH BP BEING A BIT SOFT.
--- NOTE | 2025-10-17 06:38 | NUR ---
NOTIFIED DR JAMES OF CRITICAL LAB VALUE FOR CREATININE
[2025-10-17 08:08] VITALS: BP 104/61
[2025-10-17 13:42] LABS: Ferritin, Serum 273.0 ng/mL (8-252); Total Iron Binding Capacity 183.0 ug/dL (250-450)
[2025-10-17 15:52] VITALS: BP 100/59
--- NOTE | 2025-10-17 18:01 | NUR ---
ASSUMED CARE PT A/O X 4 VERY PLEASENT AND COOPERATIVE WITH CARE. PT HAS MIINIMAL C/O PAIN NO S/S OF DISTRESS. CURRENTLY NPO AND CELESTE WELL. IV INFUSING TO RIGHT FA. PT EXPRESSING DESIRE TO BE TRANSFERED NORTH TO HIGHER LEVEL OF CARE DUE TO COMPLEX GI HX. OSTOMY HAS SMALL AMOUNT OF STOOL PRESENT.
--- NOTE | 2025-10-17 18:04 | NUR ---
0930 PT OUT OF BED WALKING WAS CALLED BY HORSE SHOER DUE TO PT HAVING CARDIAC CHANGES WHILE AMB. PT HAS NO C/O CHEST PAIN NO SOB NO DISTRESS AND WAS UPSET SHE NEEDED TO BE WHEELED BACK TO ROOM. HEART RATE RETURNED TO NORMAL WELL CARDIAC. MD IS AWARE.
--- NOTE | 2025-10-17 18:06 | NUR ---
TELE MONITOR DCED. PT OUT OF BED AMB IN POWELL DOING VERY WELL. PT DID 15 LAPS AROUND 3RD FLOOR AND CELESTE WELL. RETURNED FOR A NAP, NO PAIN NOTED. BOWEL SOUNDS ACTIVE. CONT MONITOR
--- NOTE | 2025-10-17 18:07 | NUR ---
PT QUIETLY LAYING IN BED NO CHANGE.
[2025-10-17 20:05] VITALS: BP 100/58
--- NOTE | 2025-10-18 00:28 | NUR ---
AT Q6H POC BLOOD GLUCOSE CHECKS, PT CBG 59 WITH ONLY SYMPTOM BEING PINEDA. HOSPITALIST NOTIFIED AND ORDER FOR D5/LR @ 100ML/HR ORDERED.
[2025-10-18] MEDS ORDERED: D5W-LR 1,000 ML IV SCH (01:00)
[2025-10-18 04:57] VITALS: BP 95/57
[2025-10-18 05:25] LABS: BASOPHILS ABSOLUTE AUTO 0.02 K/mm3 (0.00-0.23); BASOPHILS PERCENT AUTO 0 % (0-2); EOSINOPHILS ABSOLUTE AUTO 0.32 K/mm3 (0.00-0.68); EOSINOPHILS PERCENT AUTO 7 % (0-6); Hematocrit 28.8 % (33.0-51.0); Hemoglobin 8.7 g/dL (11.5-16.0); IMMATURE GRAN ABSOLUTE AUTO 0.01 K/mm3 (0.00-0.10); IMMATURE GRAN PERCENT AUTO 0 % (0-1); LYMPHOCYTES ABSOLUTE AUTO 0.95 K/mm3 (0.84-5.20); LYMPHOCYTES PERCENT AUTO 21 % (21-46); MONOCYTES ABSOLUTE AUTO 0.37 K/mm3 (0.16-1.47); MONOCYTES PERCENT AUTO 8 % (4-13); Mean Corpuscular HGB Conc 30.2 g/dL (31.5-36.5); Mean Corpuscular Volume 80 fL (80-100); NEUTROPHILS ABSOLUTE AUTO 2.85 K/mm3 (1.96-9.15); NEUTROPHILS PERCENT AUTO 63 % (41-73); NRBC ABSOLUTE 0.00 K/mm3 (0.00-0.02); NRBC Auto 0.0 /100 WBC (0.0-0.2); Platelet Count 406 K/mm3 (150-400); RDW Coefficient Variation 17.3 % (11.7-14.2); RDW Standard Deviation 51.6 fL (35.1-46.3)
[2025-10-18 05:50] LABS: Anion Gap 9.0 mmol/L (3-11); Blood Urea Nitrogen 6.0 mg/dL (8-24); CO2, Blood 25.0 mmol/L (21-32); Calcium, Blood 8.6 mg/dL (8.5-10.1); Chloride, Blood 108.0 mmol/L (98-108); Creatinine, Blood 0.43 mg/dL (0.40-1.00); Glucose, Blood 90.0 mg/dL (70-99); Potassium, Blood 3.5 mmol/L (3.5-5.5); Sodium, Blood 138.0 mmol/L (136-145)
--- NOTE | 2025-10-18 06:05 | NUR ---
SHIFT SUMMARY NOC PT A/O X 4. PLEASANT AND COOPERATIVE WITH CARE. VSS. Q6H MIDNIGHT CBG 59, WITH PT HAVING C/O OF MILD PINEDA. HOSPITALIST NOTIFIED AND ORDER FOR 1L D5/LR @ 100 ML/HR PLACED AND GIVEN. PT BLOOD GLUCOSE NOW AT 90. PT STILL NPO DUE TO SBO. PT PAIN WAS 2/10 AND DECLINED PAIN MEDICATION. PT CURRENTLY RESTING WITH BED IN LOWEST POSITION, AND CALL LIGHT WITHIN REACH.
[2025-10-18 08:09] VITALS: BP 118/61
[2025-10-18] MEDS ORDERED: Iron Dextran 50 MG / ML 2ML Vial IV ONE (09:40)
[2025-10-18] MEDS ORDERED: Polyethylene Glycol 3350 17 gm PO SCH (10:00)
[2025-10-18] MEDS ORDERED: Iron Dextran 975 MG in NS 250 ML IV ONE (11:30)
[2025-10-18 17:22] VITALS: BP 100/68
--- NOTE | 2025-10-18 18:27 | NUR ---
SHIFT SUMMARY PT A&OX4, VSS, RA, NON-TELE, IND IN ROOM. DIET ADVANCED TO CLEAR LIQUID DIET, TOLERATING WELL. PT REPORTS SMALL AMOUNT OF STOOL IN COLOSTOMY BAG. AMBULATED IN HALLS TODAY. NO COMPLAINTS OF PAIN OR NAUSEA. NO ACUTE CHANGES THIS SHIFT, ABLE TO MAKE NEEDS KNOWN, CALL LIGHT IN REACH.
[2025-10-18 19:21] VITALS: BP 110/73
[2025-10-19 04:04] VITALS: BP 111/60
[2025-10-19 05:59] LABS: Anion Gap 11.0 mmol/L (3-11); Blood Urea Nitrogen 3.0 mg/dL (8-24); CO2, Blood 23.0 mmol/L (21-32); Calcium, Blood 8.8 mg/dL (8.5-10.1); Chloride, Blood 107.0 mmol/L (98-108); Creatinine, Blood 0.38 mg/dL (0.40-1.00); Glucose, Blood 82.0 mg/dL (70-99); Potassium, Blood 3.6 mmol/L (3.5-5.5); Sodium, Blood 137.0 mmol/L (136-145)
--- NOTE | 2025-10-19 06:20 | NUR ---
SHIFT SUMMARY PT DENIES NAUSEA AND PAIN THROUGH THE NIGHT. TOLERATING CLEAR LIQUID DIET.IV FLUID INFUSING PER ORDER. OOB INDEPENDENTLY WITH STEADY GAIT. ASSISTED PT TO CHANGE OSTOMY BAG- STOMA RED/MOIST, ROUND. PERISTOMAL SKIN WNL. LOOSE BROWN STOOL PER OSTOMY. PT SLEPT LONG INTERVALS DURING THE NIGHT.
[2025-10-19 08:12] VITALS: BP 98/67
[2025-10-19] MEDS ORDERED: DOCU100 PO (11:16)
[2025-10-19] MEDS ORDERED: MIRALAX17 GM PO (11:16)
--- NOTE | 2025-10-19 15:19 | NUR ---
DISCHARGE PT DISCHARGED HOME WITH , EDUCATION PROVIDED, ALL QUESTIONS ANSWERED. PT DECLINED W/C
== END 2025-10-19 13:48 | disposition home or self-care (01) | DRG 389 ==
LOC: ER 17:54 → MEDS 22:02 → ENPENDDIS 10-19 11:12 → MEDS 10-19 13:48
PROVIDERS: Emergency Medicine; Internal Medicine; Student in an Organized Health Care Education/Training Program; ADMIT Student in an Organized Health Care Education/Training Program
DX: K56.609 Unspecified intestinal obstruction, unspecified as to partial versus complete obstruction (principal); K90.9 Intestinal malabsorption, unspecified; E03.9 Hypothyroidism, unspecified; D50.9 Iron deficiency anemia, unspecified; E55.9 Vitamin D deficiency, unspecified; Z90.49 Acquired absence of other specified parts of digestive tract; Z79.891 Long term (current) use of opiate analgesic; Z79.890 Hormone replacement therapy; Z93.3 Colostomy status
CPT/HCPCS: 36415; 74177; 80048; 80053; 81001; 82306; 82607; 82728; 82746; 82947; 83540; 83550; 83605; 83690; 83735; 85025; 93005; 93010; 94762; 96361; 96374-59; 96375; 99285-25; A9270; J1750; J2270; J2405; J7030; J7050; J7120; J7121; Q9967